=== PATIENT | male | born 1940 | race Caucasian/White ===

== ENCOUNTER 2021-10-04 17:00 | Outpatient (CLI) | payer MEDICARE, BC | END 2021-10-04 17:01 | disposition critical access hospital (66) | LOC: EMS 17:00 | DX: R47.02 Dysphasia (principal); R41.0 Disorientation, unspecified | CPT/HCPCS: A0425; A0427 ==

== ENCOUNTER 2021-10-04 17:30 | Inpatient (IN) | payer MEDICARE, BC ==
--- NOTE | 2021-10-04 17:54 | ED Physician Documentation ---
History of Present Illness - Stated complaint Stated Complaint: AMS - Chief complaint Chief Complaint: Neuro - History obtained from History obtained from: Family, EMS - History of Present Illness Pain level max: 0 Pain level now: 0 - Additonal information Additional information: Patient is an 81-year-old male who is brought in by EMS today for "altered mental status". It is unclear what his normal mental status is. Apparently he lives at home by himself and the crew was there to clean up the yard when they saw him inside the window on the floor. They called 911 who brought him here. Patient states that he remembers being on the floor but does not remember what happened before that. He states that he does not have any pain anywhere. Denies any vomiting or fevers. Nothing makes this better or worse. Patient denies any abdominal pain. When his daughter arrived, more history was obtained. He has had a slow cognitive decline over the past several years, but is normally able to care for himself. She speaks to him every few weeks. She states that his mental status today is worse than it has ever been. Appears disoriented to her. EMS also states that there was incontinence of urine at home. Review of Systems Unable to obtain: AMS Constitutional: denies: Fever Ears: denies: Ear pain Nose: denies: Rhinorrhea / runny nose, Congestion Throat: denies: Sore throat Respiratory: denies: Cough GI: denies: Abdominal Pain, Nausea, Vomiting, Diarrhea : denies: Dysuria Skin: denies: Rash Musculoskeletal: denies: Neck pain, Back pain Neurologic: denies: Headache, Head injury PD PAST MEDICAL HISTORY - Past Medical History Past Medical History: No - Past Surgical History Past Surgical History: No - Allergies Allergies/Adverse Reactions: Allergies Allergy/AdvReac Type Severity Reaction Status Date / Time No Known Drug Allergies Allergy Verified 10/04/21 21:23 - Living Situation Living Situation: reports: Alone Living Arrangement: reports: At home - Social History Does the pt have substance abuse?: No - Family History Family history: reports: Non contributory PD ED PE NORMAL - Vitals Vital signs reviewed: Yes - General General: No acute distress, Other (alert, oriented to person, place and time for me. 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, No motor deficit, No sensory deficit, Normal speech Eye Opening: Spontaneous Motor: Obeys Commands Verbal: Confused GCS Score: 14 - Psych Psych: Normal mood, Normal affect Results - Vitals Vitals: Vital Signs - 24 hr 10/04/21 10/04/21 17:36 20:31 Temperature 36.5 C Heart Rate 100 101 H Respiratory 18 23 Rate Blood Pressure 173/79 H 115/70 O2 Saturation 95 95 Oxygen O2 Source Room air - EKG (time done) 1757 Rate: Rate (enter#) (103) Rhythm: NSR [place]: Normal Intervals: Normal MT QRS: Normal Ischemia: Q waves, Non specific changes - Labs Labs: Laboratory Tests 10/04/21 10/04/21 10/04/21 17:56 17:56 17:56 WBC 11.0 H RBC 4.66 L Hgb 15.2 Hct 44.5 MCV 95.5 H MCH 32.6 H MCHC 34.2 RDW 12.1 Plt Count 176 MPV 9.9 Neut # (Auto) 8.9 H Lymph # (Auto) 0.6 L Cobb # (Auto) 1.3 H Eos # (Auto) 0.2 Baso # (Auto) 0.0 Absolute Nucleated RBC 0.00 Nucleated RBC % 0.0 Sodium 136 Potassium 4.2 Chloride 100 L Carbon Dioxide 23 Anion Gap 13.0 BUN 32 H Creatinine 1.0 Estimated GFR (MDRD) 72 L Glucose 127 H Calcium 8.8 Total Bilirubin 1.2 H AST 88 H ALT 34 Alkaline Phosphatase 79 Total Creatine Kinase Troponin I High Sens 44.2 H* Total Protein 7.1 Albumin 4.0 Globulin 3.1 Albumin/Globulin Ratio 1.3 Lipase 22 TSH Urine Color Urine Clarity Urine pH Ur Specific [place] Urine Protein Urine Glucose (UA) Urine Ketones Urine Occult Blood Urine Nitrite Urine Bilirubin Urine Urobilinogen Ur Leukocyte Esterase Urine RBC Urine WBC Ur Squamous Epith Cells Amorphous Sediment Urine Bacteria Ur Microscopic Review Urine Culture Comments Salicylates < 6.0 Urine Opiates Screen Ur Oxycodone Screen Urine Methadone Screen Ur Propoxyphene Screen Acetaminophen < 10 L Ur Barbiturates Screen Ur Tricyclics Screen Ur Phencyclidine Scrn Ur Amphetamine Screen U Methamphetamines Scrn U Benzodiazepines Scrn Urine Cocaine Screen U Cannabinoids Screen Ethyl Alcohol < 5.0 10/04/21 10/04/21 10/04/21 17:56 19:39 19:43 WBC RBC Hgb Hct MCV MCH MCHC RDW Plt Count MPV Neut # (Auto) Lymph # (Auto) Cobb # (Auto) Eos # (Auto) Baso # (Auto) Absolute Nucleated RBC Nucleated RBC % Sodium Potassium Chloride Carbon Dioxide Anion Gap BUN Creatinine Estimated GFR (MDRD) Glucose Calcium Total Bilirubin AST ALT Alkaline Phosphatase Total Creatine Kinase Troponin I High Sens 51.3 H* Total Protein Albumin Globulin Albumin/Globulin Ratio Lipase TSH 2.52 Urine Color YELLOW Urine Clarity CLEAR Urine pH 5.5 Ur Specific [place] >=1.030 H Urine Protein TRACE Urine Glucose (UA) NEGATIVE Urine Ketones 40 H Urine Occult Blood MODERATE H Urine Nitrite NEGATIVE Urine Bilirubin NEGATIVE Urine Urobilinogen 0.2 (NORMAL) Ur Leukocyte Esterase NEGATIVE Urine RBC 0-5 Urine WBC 0-3 Ur Squamous Epith Cells NONE SEEN Amorphous Sediment Rare Urine Bacteria None Seen Ur Microscopic Review INDICATED Urine Culture Comments NOT INDICATED Salicylates Urine Opiates Screen NEGATIVE Ur Oxycodone Screen NEGATIVE Urine Methadone Screen NEGATIVE Ur Propoxyphene Screen NEGATIVE Acetaminophen Ur Barbiturates Screen NEGATIVE Ur Tricyclics Screen NEGATIVE Ur Phencyclidine Scrn NEGATIVE Ur Amphetamine Screen NEGATIVE U Methamphetamines Scrn NEGATIVE U Benzodiazepines Scrn NEGATIVE Urine Cocaine Screen NEGATIVE U Cannabinoids Screen NEGATIVE Ethyl Alcohol 10/04/21 19:43 WBC RBC Hgb Hct MCV MCH MCHC RDW Plt Count MPV Neut # (Auto) Lymph # (Auto) Cobb # (Auto) Eos # (Auto) Baso # (Auto) Absolute Nucleated RBC Nucleated RBC % Sodium Potassium Chloride Carbon Dioxide Anion Gap BUN Creatinine Estimated GFR (MDRD) Glucose Calcium Total Bilirubin AST ALT Alkaline Phosphatase Total Creatine Kinase 2770 H* Troponin I High Sens Total Protein Albumin Globulin Albumin/Globulin Ratio Lipase TSH Urine Color Urine Clarity Urine pH Ur Specific [place] Urine Protein Urine Glucose (UA) Urine Ketones Urine Occult Blood Urine Nitrite Urine Bilirubin Urine Urobilinogen Ur Leukocyte Esterase Urine RBC Urine WBC Ur Squamous Epith Cells Amorphous Sediment Urine Bacteria Ur Microscopic Review Urine Culture Comments Salicylates Urine Opiates Screen Ur Oxycodone Screen Urine Methadone Screen Ur Propoxyphene Screen Acetaminophen Ur Barbiturates Screen Ur Tricyclics Screen Ur Phencyclidine Scrn Ur Amphetamine Screen U Methamphetamines Scrn U Benzodiazepines Scrn Urine Cocaine Screen U Cannabinoids Screen Ethyl Alcohol - Rads (name of study) head CT Radiology: Final report received, EMP read contemporaneously, See rad report (No acute intracranial abnormality. ) cervical spine CT Radiology: Final report received, EMP read contemporaneously, See rad report (No acute osseous abnormality. ) PD MEDICAL DECISION MAKING - ED course Complexity details: reviewed results, re-evaluated patient, considered differential, d/w patient, d/w family ED course: Patient with continued altered mental status. Unclear what happened today. Possible seizure versus syncope. The patient states that he told his daughter the last thing he remembers is turning on the radio. There was urinary incontinence as well. Possible that he also has undiagnosed dementia. The daughter states he shuffles with his gait. Possible Parkinson's? We will place in observation for further work-up of possible syncope versus seizure. Discussed the case with Dr. Luis, hospitalist who accepts This document was made in part using voice recognition software. While efforts are made to proofread this document, sound alike and grammatical errors may occur. Departure - Departure Disposition: ED Place in Observation Clinical Impression: Syncope Qualifiers: Syncope type: unspecified Qualified Code(s): R55 - Syncope and collapse Altered mental status Qualifiers: Altered mental status type: disorientation Qualified Code(s): R41.0 - Disorientation, unspecified Condition: Stable Discharge Date/Time: 10/04/21 21:49
[2021-10-04 18:03] LABS: BASOPHILS % (AUTO) 0.1 %; EOSINOPHILS # (AUTO) 0.2 10^3/uL (0.0-0.7); EOSINOPHILS % (AUTO) 1.7 %; HCT - HEMATOCRIT 44.5 % (42.0-52.0); HGB - HEMOGLOBIN 15.2 g/dL (14.0-18.0); LYMPHOCYTES # (AUTO) 0.6 10^3/uL (1.5-3.5); LYMPHOCYTES % (AUTO) 5.5 %; MEAN CORPUSCULAR HEMOGLOBIN 32.6 pg (27.0-31.0); MEAN CORPUSCULAR HGB CONC 34.2 g/dL (32.0-36.0); MEAN CORPUSCULAR VOLUME 95.5 fL (80.0-94.0); MEAN PLATELET VOLUME 9.9 fL (7.4-11.4); MONOCYTES # (AUTO) 1.3 10^3/uL (0.0-1.0); MONOCYTES % (AUTO) 11.8 %; NEUTROPHILS # (AUTO) 8.9 10^3/uL (1.5-6.6); NEUTROPHILS % (AUTO) 80.7 %; PLT - PLATELET COUNT 176 10^3/uL (130-450); RED BLOOD COUNT 4.66 10^6/uL (4.70-6.10); RED CELL DISTRIBUTION WIDTH 12.1 % (12.0-15.0)
[2021-10-04 18:20] LABS: ACETAMINOPHEN < 10 ug/mL (10-30); ALBUMIN/GLOBULIN RATIO 1.3 (1.0-2.2); ALKALINE PHOSPHATASE 79 IU/L (42-121); ALT ALANINE AMINOTRANSFERASE 34 IU/L (10-60); AST ASPARTATE AMINOTRANSFERASE 88 IU/L (10-42); BILIRUBIN,TOTAL 1.2 mg/dL (0.2-1.0); BUN - BLOOD UREA NITROGEN 32 mg/dL (6-20); CALCIUM 8.8 mg/dL (8.5-10.3); CARBON DIOXIDE - CO2 23 mmol/L (21-32); CHLORIDE 100 mmol/L (101-111); ETOH - ETHANOL < 5.0 mg/dL; GFR - MDRD 72 (>89); GLUCOSE 127 mg/dL (70-100); LIPASE 22 U/L (22-51); POTASSIUM 4.2 mmol/L (3.5-5.0); SALICYLATE < 6.0 mg/dL; SODIUM 136 mmol/L (135-145); TOTAL PROTEIN 7.1 g/dL (6.7-8.2)
--- NOTE | 2021-10-04 18:33 | CT Report ---
PROCEDURE: HEAD WO INDICATIONS: altered, fall TECHNIQUE: Noncontrast 4.5 mm thick angled axial sections acquired from the foramen magnum to the vertex. For r adiation dose reduction, the following was used: automated exposure control, adjustment of mA and/or kV according to patient size. COMPARISON: Same day CT cervical spine. FINDINGS: Image quality: Excellent. CSF spaces: Basal cisterns are patent. No extra-axial fluid collections. Ventricles are normal in size and shape. Brain: No midline shift. No intracranial masses or hemorrhage. No large area of hypodensity in a va scular distribution to suggest infarction. Skull and face: Calvarium and visualized facial bones are intact, without suspicious lesions. Sinuses: Visualized sinuses and mastoids are clear. IMPRESSION: No acute intracranial abnormality. Reviewed by: Marvel Calixto MD on 10/04/2021 6:32 PM [facility] Approved by: Marvel Calixto MD on 10/04/2021 6:32 PM [facility] Station ID: [id number]
--- NOTE | 2021-10-04 18:36 | CT Report ---
PROCEDURE: CERVICAL SPINE WO INDICATIONS: altered, fall TECHNIQUE: Noncontrast 3 mm thick sections acquired from the skull base to the T4 level. Sagittal and coronal r eformats were then constructed. For radiation dose reduction, the following was used: automated exp osure control, adjustment of mA and/or kV according to patient size. COMPARISON: None. FINDINGS: Image quality: Excellent. Bones: No fractures or dislocations. Moderate degenerative change in the cervical spine. Visualized superior ribs are intact. Soft tissues: Prevertebral soft tissues are normal in thickness. No paravertebral hematomas. No ap ical pneumothoraces. IMPRESSION: No acute osseous abnormality. Reviewed by: Marvel Calixto MD on 10/04/2021 6:35 PM PST Approved by: Marvel Calixto MD on 10/04/2021 6:35 PM PST Station ID: [id number]
[2021-10-04 19:42] LABS: MUDS CUTOFF CONCENTRATIONS CUTOFF CONC BELOW:
[2021-10-04 19:46] LABS: BILIRUBIN,URINE NEGATIVE (NEGATIVE); GLUCOSE, URINE (UA) NEGATIVE (NEGATIVE); KETONES,URINE (UA) 40 mg/dL (NEGATIVE); LEUKOCYTE ESTERASE, URINE NEGATIVE (NEGATIVE); NITRITE,URINE NEGATIVE (NEGATIVE); OCCULT BLOOD,URINE MODERATE (NEGATIVE); PH,URINE 5.5 PH (5.0-7.5); PROTEIN,URINE TRACE mg/dL (NEGATIVE); UROBILINOGEN,URINE 0.2 (NORMAL) E.U./dL (NORMAL)
[2021-10-04 19:48] LABS: CLARITY,URINE CLEAR (CLEAR)
[2021-10-04 19:55] LABS: AMORPHOUS SEDIMENT,UR Rare /LPF; BACTERIA,URINE None Seen /HPF (None Seen); RBC,URINE 0-5 /HPF (0-5); SQUAMOUS EPITHELIAL CELL,UR NONE SEEN (<= Few); WBC,URINE 0-3 /HPF (0-3)
[2021-10-04 19:56] LABS: AMPHETAMINE SCREEN,URINE NEGATIVE (NEGATIVE); BARBITURATE SCREEN,UR NEGATIVE (NEGATIVE); BENZODIAZEPINES SCREEN, URINE NEGATIVE (NEGATIVE); COCAINE SCREEN URINE NEGATIVE (NEGATIVE); METHADONE SCREEN, URINE NEGATIVE (NEGATIVE); METHAMPHETAMINES SCREEN, URINE NEGATIVE (NEGATIVE); OPIATE SCREEN, URINE NEGATIVE (NEGATIVE); OXYCODONE SCREEN, URINE NEGATIVE (NEGATIVE); PROPOXYPHENE SCREEN, URINE NEGATIVE (NEGATIVE); THC CANNABINOID SCREEN, URINE NEGATIVE (NEGATIVE); TRICYCLIC ANTIDEPRESSANT,URINE NEGATIVE (NEGATIVE)
[2021-10-04] MEDS ORDERED: ONDANSETRON 4 MG/2 ML VIAL IVP PRN (20:52)
[2021-10-04] MEDS ORDERED: SODIUM CHLORIDE FLUSH 0.9% 10 ML SYRINGE IVP PRN (20:52)
--- NOTE | 2021-10-04 21:02 | HISTORY & PHYSICAL EXAMINATION ---
Chief Complaint - Chief Complaint Chief Complaint: Found down History of Present Illness - Admitted From Admitted From:: ED - History Obtained From History obtained from: ED provider and the daughter at his bedside - History of Present Illness HPI Comment/Other: This is an 81-year-old white male who lives alone, daughter lives in [place] (and arrived at his bedside in ED). 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 He has no significant past medical history, sees his doctor for routine visits, and takes no chronic prescription medications. Today his pinball machine repairer's were working at his location and through his home's window, they saw him on the floor in his house and called 911. EMS arrived and found him to be warm and dry but confused and incontinent of urine. Vital signs at the scene showed O2 saturation of 96%, blood pressure of 180/100, serum glucose of 140, heart rate 90-110 but no EKG was done then. In the ED he was oriented only to person and time, not to place; he thought he was in [place]. His neuro exam was non-focal. He stated he remembered being on the floor but could not remember how he got there or how long he was down. The daughter arrived at bedside in the ED, and did report that he is becoming slowly more confused over the last few mos and she thinks he no longer drives. He underwent a head CT and neck imaging which showed no acute findings and no trauma. The patient is currently on Amoxicillin for dental infection and no abscess was seen on imaging. His EKG is abnormal suggesting possible old posterior SD. His initial blood pressure here was 180 systolic and on repeat was as low as 115 systolic. Labs show prerenal azotemia and concentrated urine consistent with dehydration, his tox screen is entirely neg. The patient was presented to the Hospitalist team to place in Observation status to evaluate syncope versus seizure and also evaluate his persistent confusion (altered mental status). I discussed his CODE [place] wishes with his daughter and she does not know, and he is too lethargic to answer me. History - Past Medical History Cardiovascular: reports: None Respiratory: reports: None Neuro: reports: Other (Daughter repoirts lapses in memory, mixes up recent with past events.) Endocrine/Autoimmune: reports: None GI: reports: None WASHER ENGINEER: reports: None : reports: None HEENT: reports: Other (Current dental infection, is on Amoxacillin) Psych: reports: None Musculoskeletal: reports: None Derm: reports: None - Family & Social History Family History: Mother: , Father: , Other family: Alive and Well (2 daughters are alive and healthy) Family History Comment/Other: He was an only child. 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 His of 40 years him and he lives alone since 2008. Living arrangement: At home Living Situation: Alone Social History Notes: He quit smoking 50+ yrs ago, and does not drink alcohol for the past 9 years ("to be healthier"). [place]. - Substance History Use: Uses substance without health or social issues: NONE Meds/Allgy - Allergies Allergies/Adverse Reactions: Allergies Allergy/AdvReac Type Severity Reaction Status Date / Time No Known Drug Allergies Allergy Verified 10/04/21 21:23 Review of Systems - Ears, Nose & Throat Ears, Nose & Throat: reports: Other (Dental surgery scheduled in 1 week, currently he has a prescription for Amoxacillin,) - Neurological Neurological: reports: Memory problems, Other (He stays up late and sleeps-in late. He is currently sleeping and awakens to name but falls asleep immediately, occaisionally snoring, sleeping on his back.) - All Other Systems All Other Systems: reports: Reviewed and negative (These were all reviewed with the daughter at his bedside.) Exam - Vital Signs Reviewed Vital Signs: Yes Vital Signs: Vital Signs x48h Temp Pulse Resp BP Pulse Ox 10/04/21 20:31 101 H 23 115/70 95 10/04/21 17:36 36.5 C 100 18 173/79 H 95 - Physical Exam General Appearance: positive: No acute distress, Lethargic (He is currently sleeping and awakens to name but falls asleep immediately, occaisionally snoring, sleeping on his back.) Eyes Bilateral: positive: Normal inspection ENT: positive: Dry mucous membranes Neck: positive: Nml inspection, No JVD Respiratory: positive: No respiratory distress, Breath sounds nml Cardiovascular: positive: Regular rate & rhythm, No murmur Abdomen: positive: Non-tender, Nml bowel sounds, No distention Skin: positive: Warm, Dry Extremities: positive: Non-tender, Other (Trace ankle edema) Neurologic/Psychiatric: positive: Other (Lethargic, moving all extrem spontaneously, awakens to name and answers with one word but falls back asleep.) Conclusion/Plan - Problem List (1) Syncope Conclusion/Plan: How he got to the ground was unwitnessed and he cannot remember. Will evaluate as it for syncope versus seizures. Will place on telemetry, obtain orthostatic vital sign checks, obtain an echo. We will order neuro checks every 4 hours and obtain a brain MRI in the morning. Will obtain a serum CK level to evaluate for possible rhabdomyolysis>> The result returned at 2770 (upper limit of normal is 4 times hour highest limit which would be 1345, therefore he has mild rhabdomyolysis) Qualifiers: Syncope type: unspecified Qualified Code(s): R55 - Syncope and collapse (2) Altered mental status Conclusion/Plan: The patient was not oriented to place at presentation to the ED. In his house at the scene, he was reported to be confused with no details regarding the degree of confusion. The daughter reported that his memory is slowly becoming worse. This altered mental status could be a post ictal state if he had a seizure causing the fall to ground, or this AMS could be his decline in memory, that is reported by the daughter. Will order neuro checks every 4 hours. We will obtain a brain MRI for more detailed brain imaging. Will give IV hydration to treat the prerenal azotemia. Will order evaluation by Occupational Therapy including a mini cognitive evaluation. Based on this result, living alone or driving may need to be restricted. Qualifiers: Altered mental status type: disorientation Qualified Code(s): R41.0 - Disorientation, unspecified (3) Prerenal azotemia Conclusion/Plan: His BUN/creatinine ratio is elevated and his urine specific gravity is greater than 1.030 suggesting volume depletion. Perhaps dehydration causing orthostasis was the cause for his fall. Will start normal saline at a moderate rate for rehydration. Avoid nephrotoxins. Follow BMP daily. (4) Abnormal EKG Conclusion/Plan: His EKG is significant for early R/S transition which could be cor pulmonale or an old posterior infarct. His two troponins (44 and 51) have ruled him out for an acute coronary event. Telemetry ordered. A complete Echo has been ordered as part of the syncope work-up. (5) Rhabdomyolysis Conclusion/Plan: A serum CK level was ordered to evaluate for possible rhabdomyolysis. The result returned at 2770 (upper limit of normal is 4 times hour highest limit which would be 1345, therefore he has mild rhabdomyolysis). Continue with the IV saline hydration which is planned. Follow CK daily - Lab Results Fish Bones: 10/04/21 17:56 10/04/21 17:56
[2021-10-04] MEDS: SODIUM CHLORIDE 0.9% 1,000 ML IV SCH (21:15)
[2021-10-04 22:31] LABS: B. PARAPERTUSSIS- RESP PCR PAN NOT DETECTED; B. PERTUSSIS- RESP PCR PANEL NOT DETECTED; C. PNEUMONIAE- RESP PCR PANEL NOT DETECTED; CORONAVIRUS 229E-RESP PCR NOT DETECTED; CORONAVIRUS HKU1-RESP PCR NOT DETECTED; CORONAVIRUS NL63-RESP PCR NOT DETECTED; CORONAVIRUS OC43-RESP PCR NOT DETECTED; HUMAN METAPNEUMOVIRUS NOT DETECTED; INFLUENZA A- RESP PCR PANEL NOT DETECTED; INFLUENZA B - RESP PCR PANEL NOT DETECTED; M. PNEUMONIAE- RESP PCR PANEL NOT DETECTED; PARAINFLUENZA VIRUS 1 NOT DETECTED; PARAINFLUENZA VIRUS 2 NOT DETECTED; PARAINFLUENZA VIRUS 3 NOT DETECTED; PARAINFLUENZA VIRUS 4 NOT DETECTED; RHINOVIRUS/ENTEROVIRUS NOT DETECTED; RSV- RESP PCR PANEL NOT DETECTED; SARS-CoV-2 -RESP PCR PANEL NOT DETECTED
[2021-10-05] MEDS: SODIUM CHLORIDE FLUSH 0.9% 10 ML SYRINGE IVP SCH ×4 (00:03→23:36)
[2021-10-05] MEDS: SODIUM CHLORIDE 0.9% 1,000 ML IV SCH ×3 (06:43→16:13)
[2021-10-05 07:20] LABS: CALCIUM 8.3 mg/dL (8.5-10.3); CREATININE 1.1 mg/dL (0.6-1.2); POTASSIUM 3.7 mmol/L (3.5-5.0)
[2021-10-05 08:41] LABS: BASOPHILS % (AUTO) 0.4 %; EOSINOPHILS % (AUTO) 0.4 %; HGB - HEMOGLOBIN 12.9 g/dL (14.0-18.0); LYMPHOCYTES # (AUTO) 1.4 10^3/uL (1.5-3.5); LYMPHOCYTES % (AUTO) 16.4 %; MEAN CORPUSCULAR HEMOGLOBIN 33.1 pg (27.0-31.0); MEAN CORPUSCULAR HGB CONC 33.9 g/dL (32.0-36.0); MEAN CORPUSCULAR VOLUME 97.4 fL (80.0-94.0); MEAN PLATELET VOLUME 10.2 fL (7.4-11.4); MONOCYTES # (AUTO) 1.1 10^3/uL (0.0-1.0); MONOCYTES % (AUTO) 13.3 %; NEUTROPHILS # (AUTO) 5.7 10^3/uL (1.5-6.6); NEUTROPHILS % (AUTO) 69.1 %; PLT - PLATELET COUNT 147 10^3/uL (130-450); RED CELL DISTRIBUTION WIDTH 12.8 % (12.0-15.0); WHITE BLOOD COUNT 8.2 x10^3/uL (4.8-10.8)
--- NOTE | 2021-10-05 13:46 | MRI Report ---
PROCEDURE: Brain W/O INDICATIONS: Altered mental status TECHNIQUE: Noncontrast axial T1 spin echo, axial T2 fast spin echo, sagittal and axial FLAIR, coronal T2 fast sp in echo, axial gradient echo, axial diffusion and ADC through the brain. COMPARISON: CT head 10/04/2021 FINDINGS: Image quality: Excellent. The ventricular system and cortical sulci demonstrate atrophy, consistent for patient's stated age. There are areas of hyperintense T2/FLAIR signal in the periventricular and subcortical white matter. There is no acute intra or extra-axial fluid collection. No acute hemorrhage, mass lesion or midlin e shift. Brainstem is unremarkable. There are no areas of restricted diffusion. Globes are symmetr ical. Sinuses are aerated. Osseous structures are intact. IMPRESSION: 1. No acute intracranial process. 2. Moderate atrophy and chronic microvascular ischemic changes. Reviewed by: Aster Lockwood MD on 10/05/2021 1:45 PM PST Approved by: Aster Lockwood MD on 10/05/2021 1:45 PM PST Station ID: [id number]
[2021-10-05 15:31] LABS: CALCIUM 8.1 mg/dL (8.5-10.3); CREATININE 1.2 mg/dL (0.6-1.2); POTASSIUM 3.7 mmol/L (3.5-5.0)
--- NOTE | 2021-10-05 15:34 | PROVIDER PROGRESS NOTE ---
Assessment/Plan - Problem List (1) Altered mental status Qualifiers: Altered mental status type: disorientation Qualified Code(s): R41.0 - Disorientation, unspecified Assessment/Plan: 10/05 pt still present confusion, he report he is "on surgery". his creatinine is 1.2 today from 1 at the admission, CK remain the similar as the admission. pt did not have seizure at hospital as far. MRI of brain reveal No acute process. continue neuro check, continue OT/PT evaluation and treatment. consult with social worker assistant for d/c planning. (2) Syncope Conclusion/Plan: pt has unwitnessed syncope, ECHO has normal EF, without aortic stenosis, unremarkable, troponin is slight elevated but flat, r/o acute CAD. he denies chest pain. he is negative for orthostatic hypotension. pt presented dehydration, confusion, mild rhabdomyolysis (3) Prerenal azotemia pt had no IVF at ER. now he has slight elevated creatinine, increase IVF to 125 cc/h, lab and vital monitor (4) Rhabdomyolysis mild rhabdomyolysis, CK remain similar today. pt had no IVF at ER, order IVF, check CK daily - Current Meds Current Meds: Current Medications Generic Name Dose Route Start Last Admin Trade Name Gorgeq PRN Reason Stop Dose Admin Sodium Chloride 1,000 mls @ 125 mls/hr 10/05/21 08:02 10/05/21 12:44 Normal Saline 0.9% IV 10/06/21 00:00 125 mls/hr .Q8H TRA Infusion Sodium Chloride 10 ml 10/05/21 01:00 10/05/21 11:11 Sodium Chloride Flush 0.9% 10 Ml Syringe IVP Not Given 0100,0900,1700 TRA - Lab Result Fish Bone Diagrams: 10/05/21 08:20 10/05/21 15:13 - Additional Planning My Orders: My Active Orders 10/05/21 Social Work Consult [CONS] Routine 10/05/21 08:02 Sodium Chloride 0.9% [Normal Saline 0.9%] 1,000 ml IV 125 mls/hr 10/05/21 15:13 CK- CREATINE KINASE [CHEM] Timed 10/06/21 05:00 BMP - BASIC METABOLIC PANEL [CHEM] DAILYLAB CBC - COMP BLD CT W/AUTO DIFF [HEME] DAILYLAB CK- CREATINE KINASE [CHEM] DAILYLAB 10/07/21 05:00 BMP - BASIC METABOLIC PANEL [CHEM] DAILYLAB CBC - COMP BLD CT W/AUTO DIFF [HEME] DAILYLAB CK- CREATINE KINASE [CHEM] DAILYLAB 10/08/21 05:00 BMP - BASIC METABOLIC PANEL [CHEM] DAILYLAB CBC - COMP BLD CT W/AUTO DIFF [HEME] DAILYLAB CK- CREATINE KINASE [CHEM] DAILYLAB 10/09/21 05:00 BMP - BASIC METABOLIC PANEL [CHEM] DAILYLAB CBC - COMP BLD CT W/AUTO DIFF [HEME] DAILYLAB CK- CREATINE KINASE [CHEM] DAILYLAB 10/10/21 05:00 BMP - BASIC METABOLIC PANEL [CHEM] DAILYLAB CBC - COMP BLD CT W/AUTO DIFF [HEME] DAILYLAB CK- CREATINE KINASE [CHEM] DAILYLAB Subjective - Subjective Patient Reports: Resting Comfortably Objective Vital Signs: Vital Signs - 24 hr 10/04/21 10/04/21 10/04/21 17:36 20:31 21:36 Temperature 36.5 C 36.8 C Heart Rate 100 101 H Heart Rate [ Activity] Heart Rate [ 95 Brachial] Heart Rate [ Monitoring electrodes] Heart Rate [ Sitting] Heart Rate [ Standing] Heart Rate [ Supine] Respiratory 18 23 18 Rate Blood Pressure 173/79 H 115/70 Blood Pressure [Activity] Blood Pressure 124/74 [Left] Blood Pressure [Right Brachial artery] Blood Pressure [Sitting] Blood Pressure [Standing] Blood Pressure [Supine] O2 Saturation 95 95 99 10/04/21 10/05/21 10/05/21 23:43 05:00 08:15 Temperature 36.8 C 37.1 C 37.7 C Heart Rate Heart Rate [ Activity] Heart Rate [ 97 86 Brachial] Heart Rate [ 96 Monitoring electrodes] Heart Rate [ Sitting] Heart Rate [ Standing] Heart Rate [ Supine] Respiratory 20 18 20 Rate Blood Pressure Blood Pressure [Activity] Blood Pressure 127/61 [Left] Blood Pressure 131/64 H 124/55 L [Right Brachial artery] Blood Pressure [Sitting] Blood Pressure [Standing] Blood Pressure [Supine] O2 Saturation 95 95 93 10/05/21 10/05/21 11:59 13:10 Temperature 37.3 C Heart Rate Heart Rate [ 86 Activity] Heart Rate [ 85 Brachial] Heart Rate [ Monitoring electrodes] Heart Rate [ 86 Sitting] Heart Rate [ 93 Standing] Heart Rate [ 84 Supine] Respiratory 20 Rate Blood Pressure Blood Pressure 135/72 H [Activity] Blood Pressure [Left] Blood Pressure 130/59 L [Right Brachial artery] Blood Pressure 144/81 H [Sitting] Blood Pressure 133/74 H [Standing] Blood Pressure 132/67 H [Supine] O2 Saturation 94 Oxygen O2 Source Room air I&O (Last 24 Hrs): Intake and Output Totals x24h 10/03/21 10/04/21 10/05/21 23:59 23:59 23:59 Intake Total 2320.000 Output Total 300 Balance -300 2320.000 General: Alert, Cooperative, No acute distress HEENT: Atraumatic, PERRLA Neck: Supple Lymphatic: no adenopathy Neuro: Alert, Non Focal Cardiovascular: Regular rate, Normal S1, Normal S2 Respiratory: Chest non-tender, No respiratory distress, Breath sounds nml Abdomen: Normal bowel sounds, Soft Extremities: Normal pulses - Results Results: Laboratory Results WBC 8.2 x10^3/uL (4.8-10.8) 10/05/21 08:20 RBC 3.90 10^6/uL (4.70-6.10) L 10/05/21 08:20 Hgb 12.9 g/dL (14.0-18.0) L 10/05/21 08:20 Hct 38.0 % (42.0-52.0) L 10/05/21 08:20 MCV 97.4 fL (80.0-94.0) H 10/05/21 08:20 MCH 33.1 pg (27.0-31.0) H 10/05/21 08:20 MCHC 33.9 g/dL (32.0-36.0) 10/05/21 08:20 RDW 12.8 % (12.0-15.0) 10/05/21 08:20 Plt Count 147 10^3/uL (130-450) 10/05/21 08:20 MPV 10.2 fL (7.4-11.4) 10/05/21 08:20 Neut # (Auto) 5.7 10^3/uL (1.5-6.6) 10/05/21 08:20 Lymph # (Auto) 1.4 10^3/uL (1.5-3.5) L 10/05/21 08:20 [place] # (Auto) 1.1 10^3/uL (0.0-1.0) H 10/05/21 08:20 Eos # (Auto) 0.0 10^3/uL (0.0-0.7) 10/05/21 08:20 Baso # (Auto) 0.0 10^3/uL (0.0-0.1) 10/05/21 08:20 Absolute Nucleated RBC 0.00 x10^3/uL 10/05/21 08:20 Nucleated RBC % 0.0 /100WBC 10/05/21 08:20 Sodium 137 mmol/L (135-145) 10/05/21 15:13 Potassium 3.7 mmol/L (3.5-5.0) 10/05/21 15:13 Chloride 110 mmol/L (101-111) 10/05/21 15:13 Carbon Dioxide 22 mmol/L (21-32) 10/05/21 15:13 Anion Gap 5.0 (6-13) L 10/05/21 15:13 BUN 32 mg/dL (6-20) H 10/05/21 15:13 Creatinine 1.2 mg/dL (0.6-1.2) 10/05/21 15:13 Estimated GFR (MDRD) 58 (>89) L 10/05/21 15:13 Glucose 127 mg/dL (70-100) H 10/05/21 15:13 Calcium 8.1 mg/dL (8.5-10.3) L 10/05/21 15:13 Total Bilirubin 1.2 mg/dL (0.2-1.0) H 10/04/21 17:56 AST 88 IU/L (10-42) H 10/04/21 17:56 ALT 34 IU/L (10-60) 10/04/21 17:56 Alkaline Phosphatase 79 IU/L (42-121) 10/04/21 17:56 Total Creatine Kinase 2735 IU/L (22-269) H* 10/05/21 04:58 Troponin I High Sens 51.3 ng/L (2.3-19.7) H* 10/04/21 19:43 Total Protein 7.1 g/dL (6.7-8.2) 10/04/21 17:56 Albumin 4.0 g/dL (3.2-5.5) 10/04/21 17:56 Globulin 3.1 g/dL (2.1-4.2) 10/04/21 17:56 Albumin/Globulin Ratio 1.3 (1.0-2.2) 10/04/21 17:56 Lipase 22 U/L (22-51) 10/04/21 17:56 TSH 2.52 uIU/mL (0.34-5.60) 10/04/21 17:56 Urine Color YELLOW 10/04/21 19:39 Urine Clarity CLEAR (CLEAR) 10/04/21 19:39 Urine pH 5.5 PH (5.0-7.5) 10/04/21 19:39 Ur Specific [place] >=1.030 (1.002-1.030) H 10/04/21 19:39 Urine Protein TRACE mg/dL (NEGATIVE) 10/04/21 19:39 Urine Glucose (UA) NEGATIVE mg/dL (NEGATIVE) 10/04/21 19:39 Urine Ketones 40 mg/dL (NEGATIVE) H 10/04/21 19:39 Urine Occult Blood MODERATE (NEGATIVE) H 10/04/21 19:39 Urine Nitrite NEGATIVE (NEGATIVE) 10/04/21 19:39 Urine Bilirubin NEGATIVE (NEGATIVE) 10/04/21 19:39 Urine Urobilinogen 0.2 (NORMAL) E.U./dL (NORMAL) 10/04/21 19:39 Ur Leukocyte Esterase NEGATIVE (NEGATIVE) 10/04/21 19:39 Urine RBC 0-5 /HPF (0-5) 10/04/21 19:39 Urine WBC 0-3 /HPF (0-3) 10/04/21 19:39 Ur Squamous Epith Cells NONE SEEN (<= Few) 10/04/21 19:39 Amorphous Sediment Rare /LPF 10/04/21 19:39 Urine Bacteria None Seen /HPF (None Seen) 10/04/21 19:39 Ur Microscopic Review INDICATED 10/04/21 19:39 Urine Culture Comments NOT INDICATED 10/04/21 19:39 Nasal Adenovirus (PCR) NOT DETECTED 10/04/21 21:03 Nasal B. parapertussis DNA (PCR) NOT DETECTED 10/04/21 21:03 Nasal Coronavir 229E PCR NOT DETECTED 10/04/21 21:03 Nasal Coronavir HKU1 PCR NOT DETECTED 10/04/21 21:03 Nasal Coronavir NL63 PCR NOT DETECTED 10/04/21 21:03 Nasal Coronavir OC43 PCR NOT DETECTED 10/04/21 21:03 Nasal Enterovir/Rhinovir PCR NOT DETECTED 10/04/21 21:03 Nasal Influenza B PCR NOT DETECTED 10/04/21 21:03 Nasal Influenza A PCR NOT DETECTED 10/04/21 21:03 Nasal Parainfluen 1 PCR NOT DETECTED 10/04/21 21:03 Nasal Parainfluen 2 PCR NOT DETECTED 10/04/21 21:03 Nasal Parainfluen 3 PCR NOT DETECTED 10/04/21 21:03 Nasal Parainfluen 4 PCR NOT DETECTED 10/04/21 21:03 Nasal RSV (PCR) NOT DETECTED 10/04/21 21:03 Nasal B.pertussis DNA PCR NOT DETECTED 10/04/21 21:03 Nasal C.pneumoniae (PCR) NOT DETECTED 10/04/21 21:03 Deonte Human Metapneumo PCR NOT DETECTED 10/04/21 21:03 Nasal M.pneumoniae (PCR) NOT DETECTED 10/04/21 21:03 Nasal SARS-CoV-2 (PCR) NOT DETECTED 10/04/21 21:03 Salicylates < 6.0 mg/dL 10/04/21 17:56 Urine Opiates Screen NEGATIVE (NEGATIVE) 10/04/21 19:39 Ur Oxycodone Screen NEGATIVE (NEGATIVE) 10/04/21 19:39 Urine Methadone Screen NEGATIVE (NEGATIVE) 10/04/21 19:39 Ur Propoxyphene Screen NEGATIVE (NEGATIVE) 10/04/21 19:39 Acetaminophen < 10 ug/mL (10-30) L 10/04/21 17:56 Ur Barbiturates Screen NEGATIVE (NEGATIVE) 10/04/21 19:39 Ur Tricyclics Screen NEGATIVE (NEGATIVE) 10/04/21 19:39 Ur Phencyclidine Scrn NEGATIVE (NEGATIVE) 10/04/21 19:39 Ur Amphetamine Screen NEGATIVE (NEGATIVE) 10/04/21 19:39 U Methamphetamines Scrn NEGATIVE (NEGATIVE) 10/04/21 19:39 U Benzodiazepines Scrn NEGATIVE (NEGATIVE) 10/04/21 19:39 Urine Cocaine Screen NEGATIVE (NEGATIVE) 10/04/21 19:39 U Cannabinoids Screen NEGATIVE (NEGATIVE) 10/04/21 19:39 Ethyl Alcohol < 5.0 mg/dL 10/04/21 17:56 ABX Reporting Has patient been on IV antibiotics over the past 48 hours?: No Current Medications - Current Medications Current Medications: Active Medications Acetaminophen (Acetaminophen 325 Mg Tablet) 650 mg PO Q4HR PRN PRN Reason: Pain or Fever > 38C (100.4F) Sodium Chloride (Normal Saline 0.9%) 1,000 mls @ 125 mls/hr IV .Q8H [facility] Stop: 10/06/21 00:00 Last Infusion: 10/05/21 12:44 Dose: 125 mls/hr Documented by: Ondansetron HCl (Ondansetron 4 Mg/2 Ml Vial) 4 mg IVP Q6HR PRN PRN Reason: Nausea / Vomiting Sodium Chloride (Sodium Chloride Flush 0.9% 10 Ml Syringe) 10 ml IVP PRN PRN PRN Reason: NEEDED PER PROVIDER ORDERS Sodium Chloride (Sodium Chloride Flush 0.9% 10 Ml Syringe) 10 ml IVP 0100,0900,1700 [facility] Last Admin: 10/05/21 11:11 Dose: Not Given Documented by:
[2021-10-06 06:05] LABS: BASOPHILS % (AUTO) 0.4 %; EOSINOPHILS # (AUTO) 0.1 10^3/uL (0.0-0.7); HCT - HEMATOCRIT 41.2 % (42.0-52.0); HGB - HEMOGLOBIN 13.7 g/dL (14.0-18.0); LYMPHOCYTES # (AUTO) 1.4 10^3/uL (1.5-3.5); LYMPHOCYTES % (AUTO) 12.7 %; MEAN CORPUSCULAR HEMOGLOBIN 32.5 pg (27.0-31.0); MEAN CORPUSCULAR HGB CONC 33.3 g/dL (32.0-36.0); MEAN CORPUSCULAR VOLUME 97.9 fL (80.0-94.0); MEAN PLATELET VOLUME 10.4 fL (7.4-11.4); MONOCYTES # (AUTO) 1.2 10^3/uL (0.0-1.0); MONOCYTES % (AUTO) 11.4 %; NEUTROPHILS # (AUTO) 7.9 10^3/uL (1.5-6.6); NEUTROPHILS % (AUTO) 74.2 %; PLT - PLATELET COUNT 149 10^3/uL (130-450); RED BLOOD COUNT 4.21 10^6/uL (4.70-6.10); RED CELL DISTRIBUTION WIDTH 12.8 % (12.0-15.0); WHITE BLOOD COUNT 10.7 x10^3/uL (4.8-10.8)
[2021-10-06 06:26] LABS: CHOL/HDL RATIO 3.2 (<5.0); CHOLESTEROL 161 mg/dL; HDL CHOLESTEROL 51 mg/dL; LDL CHOLESTEROL,CALCULATED 94 mg/dL; LDL/HDL RATIO 1.8 (<3.6); TRIGLYCERIDES 80 mg/dL; VLDL CHOLESTEROL 16 mg/dL
[2021-10-06 06:31] LABS: CALCIUM 8.4 mg/dL (8.5-10.3); CREATININE 1.1 mg/dL (0.6-1.2); POTASSIUM 3.7 mmol/L (3.5-5.0)
[2021-10-06] MEDS ORDERED: SODIUM CHLORIDE 0.9% 1,000 ML IV SCH (08:00)
[2021-10-06] MEDS: ASPIRIN EC 81 MG TABLET PO SCH (08:13)
[2021-10-06] MEDS: polyethylene glycoL 3350 17 GM PACKET PO SCH (08:15)
[2021-10-06] MEDS: SODIUM CHLORIDE FLUSH 0.9% 10 ML SYRINGE IVP SCH ×3 (08:16→16:52)
--- NOTE | 2021-10-06 08:46 | XRAY Report ---
PROCEDURE: Chest 1 View X-Ray INDICATIONS: sob TECHNIQUE: One view of the chest was acquired. COMPARISON: Lung apices on CT cervical spine 10/04/2021. FINDINGS: Surgical changes and devices: None. Lungs and pleura: No pleural effusions or pneumothorax. Question minimal airspace opacity at the lila g bases. Mediastinum: Mediastinal contours are within normal limits. Heart size is normal. Bones and chest wall: No suspicious bony lesions. Right shoulder DJD. Overlying soft tissues appear unremarkable. IMPRESSION: Question of minimal airspace opacity at the lung bases. This could represent atelectasis or pneumonia . Reviewed by: Marvel Calixto MD on 10/06/2021 8:45 AM [facility] Approved by: Marvel Calixto MD on 10/06/2021 8:45 AM [facility] Station ID: [id number]
[2021-10-06] MEDS: SODIUM CHLORIDE 0.9% 1,000 ML IV SCH ×2 (09:50→22:38)
[2021-10-06] MEDS: AMPICILLIN/SULBACTAM 1.5 GM in SODIUM CHLORIDE 0.9% MINIBAG 100 ML IV SCH ×2 (11:33→17:51)
[2021-10-06] MEDS ORDERED: BENZONATATE 100 MG CAPSULE PO PRN (12:07)
[2021-10-06] MEDS ORDERED: BENZONATATE 100 MG CAPSULE PO ONE (13:00)
--- NOTE | 2021-10-06 14:12 | PROVIDER PROGRESS NOTE ---
Assessment/Plan - Problem List (1) Aspiration pneumonia due to food (regurgitated) Assessment/Plan: pt had large aspiration with his food, cough, O2 sat drop to 90% on room air, tem is 37.8. CXR suggestive to pneumonia. order Unasyn, aspiration precaution and sitting up at the chair to have meal, supplement of O2 as needed. (2) Altered mental status 10/06 pt had OT Cognitive evaluation, he had 14/30 scale, concern dementia status. continue PT and OT evaluation and treatment, pt is living alone, consulted with social work for safely disposition planning 10/05 pt still present confusion, he report he is "on surgery". his creatinine is 1.2 today from 1 at the admission, CK remain the similar as the admission. pt did not have seizure at hospital as far. MRI of brain reveal No acute process. continue neuro check, continue OT/PT evaluation and treatment. consult with [employer] worker for d/c planning. (3) Syncope Conclusion/Plan: 10/06 pt has unwitnessed syncope, ECHO has normal EF, without aortic stenosis, unremarkable, troponin is slight elevated but flat, r/o acute CAD. he denies chest pain. he is negative for orthostatic hypotension. pt presented dehydration, confusion, mild rhabdomyolysis which are likely the caused to his syncope (4) Prerenal azotemia 10/06 slight reduced BUN and creatinine, continue gentle IVF, lab and vital monitor pt had no IVF at ER. now he has slight elevated creatinine, increase IVF to 125 cc/h, lab and vital monitor (5) Rhabdomyolysis 09/26 CK is down to 1700 from 2700, pt remain good kidney function, continue gentle IVF, and lab monitor mild rhabdomyolysis, CK remain similar today. pt had no IVF at ER, order IVF, check CK daily - Current Meds Current Meds: Current Medications Generic Name Dose Route Start Last Admin Trade Name Jhon PRN Reason Stop Dose Admin Aspirin 81 mg 10/06/21 09:00 10/06/21 08:13 Aspirin Ec 81 Mg Tablet PO 81 mg DAILY TRA Administration Ampicillin Sodium/Sulbactam 100 mls @ 200 mls/hr 10/06/21 12:00 10/06/21 12:05 Sodium 1.5 gm/ Sodium Chloride IV Infused Q6HR TRA Infusion Sodium Chloride 1,000 mls @ 83.333 mls/hr 10/06/21 10:00 10/06/21 09:50 Normal Saline 0.9% IV 10/07/21 09:59 83.333 mls/hr .Q12H TRA Administration Polyethylene Glycol 17 gm 10/06/21 09:00 10/06/21 08:15 Polyethylene Glycol 3350 17 Gm Packet PO 17 gm DAILY TRA Administration Sodium Chloride 10 ml 10/05/21 01:00 10/06/21 09:50 Sodium Chloride Flush 0.9% 10 Ml Syringe IVP 10 ml 0100,0900,1700 TRA Administration - Lab Result Fish Bone Diagrams: 10/06/21 05:45 10/06/21 05:45 - Additional Planning My Orders: My Active Orders 10/06/21 Blood Culture [CULTURE, BLOOD #1] [] Urgent Blood Culture [CULTURE, BLOOD #2] [] Urgent Evaluate and Treat OT [OT] Routine 10/06/21 10:00 Sodium Chloride 0.9% [Normal Saline 0.9%] 1,000 ml IV 83.333 mls/hr 10/06/21 10:31 Miscellaenous Nursing Order [RC] DAILY 10/06/21 Lunch Dysphagia Mechanically Altered Diet [DIET] 10/06/21 12:00 Ampicillin/Sulbactam [Unasyn] 1.5 gm Sodium Chloride 0.9% Minibag [Normal Saline 0.9% Minibag] 100 ml IV Q6HR 10/06/21 12:07 Benzonatate [Tessalon] 100 mg PO TID PRN 10/06/21 17:00 Saccharomyces Boulardii [Florastor] 250 mg PO BIDWM 10/07/21 05:00 BMP - BASIC METABOLIC PANEL [CHEM] DAILYLAB CBC - COMP BLD CT W/AUTO DIFF [HEME] DAILYLAB CK- CREATINE KINASE [CHEM] DAILYLAB 10/08/21 05:00 BMP - BASIC METABOLIC PANEL [CHEM] DAILYLAB CBC - COMP BLD CT W/AUTO DIFF [HEME] DAILYLAB CK- CREATINE KINASE [CHEM] DAILYLAB 10/09/21 05:00 BMP - BASIC METABOLIC PANEL [CHEM] DAILYLAB CBC - COMP BLD CT W/AUTO DIFF [HEME] DAILYLAB CK- CREATINE KINASE [CHEM] DAILYLAB 10/10/21 05:00 BMP - BASIC METABOLIC PANEL [CHEM] DAILYLAB CBC - COMP BLD CT W/AUTO DIFF [HEME] DAILYLAB CK- CREATINE KINASE [CHEM] DAILYLAB Subjective - Subjective Patient Reports: Cough Objective Vital Signs: Vital Signs - 24 hr 10/05/21 10/05/21 10/05/21 16:12 20:10 23:31 Temperature 36.6 C 37.0 C 37.7 C Heart Rate [ 76 83 79 Brachial] Respiratory 14 24 20 Rate Blood Pressure 128/74 122/62 129/72 [Right Brachial artery] O2 Saturation 95 94 95 10/06/21 10/06/21 10/06/21 03:45 07:46 09:03 Temperature 37.8 C 37.4 C Heart Rate [ 88 85 Brachial] Respiratory 20 21 19 Rate Blood Pressure 140/63 H 135/76 H [Right Brachial artery] O2 Saturation 93 90 L 93 Oxygen O2 Source Room air I&O (Last 24 Hrs): Intake and Output Totals x24h 10/04/21 10/05/21 10/06/21 23:59 23:59 23:59 Intake Total 3155.417 1800 Output Total 300 650 Balance -300 3155.417 1150 General: Alert, Cooperative, No acute distress HEENT: Atraumatic Neck: Supple Lymphatic: no adenopathy Neuro: Alert, Non Focal Cardiovascular: Regular rate, Normal S1, Normal S2 Respiratory: Chest non-tender, No respiratory distress Abdomen: Normal bowel sounds, Soft Extremities: Normal pulses - Results Results: Laboratory Results WBC 10.7 x10^3/uL (4.8-10.8) 10/06/21 05:45 RBC 4.21 10^6/uL (4.70-6.10) L 10/06/21 05:45 Hgb 13.7 g/dL (14.0-18.0) L 10/06/21 05:45 Hct 41.2 % (42.0-52.0) L 10/06/21 05:45 MCV 97.9 fL (80.0-94.0) H 10/06/21 05:45 MCH 32.5 pg (27.0-31.0) H 10/06/21 05:45 MCHC 33.3 g/dL (32.0-36.0) 10/06/21 05:45 RDW 12.8 % (12.0-15.0) 10/06/21 05:45 Plt Count 149 10^3/uL (130-450) 10/06/21 05:45 MPV 10.4 fL (7.4-11.4) 10/06/21 05:45 Neut # (Auto) 7.9 10^3/uL (1.5-6.6) H 10/06/21 05:45 Lymph # (Auto) 1.4 10^3/uL (1.5-3.5) L 10/06/21 05:45 [place] # (Auto) 1.2 10^3/uL (0.0-1.0) H 10/06/21 05:45 Eos # (Auto) 0.1 10^3/uL (0.0-0.7) 10/06/21 05:45 Baso # (Auto) 0.0 10^3/uL (0.0-0.1) 10/06/21 05:45 Absolute Nucleated RBC 0.00 x10^3/uL 10/06/21 05:45 Nucleated RBC % 0.0 /100WBC 10/06/21 05:45 Sodium 138 mmol/L (135-145) 10/06/21 05:45 Potassium 3.7 mmol/L (3.5-5.0) 10/06/21 05:45 Chloride 107 mmol/L (101-111) 10/06/21 05:45 Carbon Dioxide 22 mmol/L (21-32) 10/06/21 05:45 Anion Gap 9.0 (6-13) 10/06/21 05:45 BUN 29 mg/dL (6-20) H 10/06/21 05:45 Creatinine 1.1 mg/dL (0.6-1.2) 10/06/21 05:45 Estimated GFR (MDRD) 64 (>89) L 10/06/21 05:45 Glucose 112 mg/dL (70-100) H 10/06/21 05:45 Calcium 8.4 mg/dL (8.5-10.3) L 10/06/21 05:45 Total Bilirubin 1.2 mg/dL (0.2-1.0) H 10/04/21 17:56 AST 88 IU/L (10-42) H 10/04/21 17:56 ALT 34 IU/L (10-60) 10/04/21 17:56 Alkaline Phosphatase 79 IU/L (42-121) 10/04/21 17:56 Total Creatine Kinase 1772 IU/L (22-269) H* 10/06/21 05:45 Troponin I High Sens 51.3 ng/L (2.3-19.7) H* 10/04/21 19:43 Total Protein 7.1 g/dL (6.7-8.2) 10/04/21 17:56 Albumin 4.0 g/dL (3.2-5.5) 10/04/21 17:56 Globulin 3.1 g/dL (2.1-4.2) 10/04/21 17:56 Albumin/Globulin Ratio 1.3 (1.0-2.2) 10/04/21 17:56 Triglycerides 80 mg/dL (-149) 10/06/21 05:45 Cholesterol 161 mg/dL (-199) 10/06/21 05:45 LDL Cholesterol, Calc 94 mg/dL (-129) 10/06/21 05:45 VLDL Cholesterol 16 mg/dL 10/06/21 05:45 HDL Cholesterol 51 mg/dL (60-) L 10/06/21 05:45 LDL/HDL Ratio 1.8 (<3.6) 10/06/21 05:45 Cholesterol/HDL Ratio 3.2 (<5.0) 10/06/21 05:45 Lipase 22 U/L (22-51) 10/04/21 17:56 TSH 2.52 uIU/mL (0.34-5.60) 10/04/21 17:56 Urine Color YELLOW 10/04/21 19:39 Urine Clarity CLEAR (CLEAR) 10/04/21 19:39 Urine pH 5.5 PH (5.0-7.5) 10/04/21 19:39 Ur Specific [place] >=1.030 (1.002-1.030) H 10/04/21 19:39 Urine Protein TRACE mg/dL (NEGATIVE) 10/04/21 19:39 Urine Glucose (UA) NEGATIVE mg/dL (NEGATIVE) 10/04/21 19:39 Urine Ketones 40 mg/dL (NEGATIVE) H 10/04/21 19:39 Urine Occult Blood MODERATE (NEGATIVE) H 10/04/21 19:39 Urine Nitrite NEGATIVE (NEGATIVE) 10/04/21 19:39 Urine Bilirubin NEGATIVE (NEGATIVE) 10/04/21 19:39 Urine Urobilinogen 0.2 (NORMAL) E.U./dL (NORMAL) 10/04/21 19:39 Ur Leukocyte Esterase NEGATIVE (NEGATIVE) 10/04/21 19:39 Urine RBC 0-5 /HPF (0-5) 10/04/21 19:39 Urine WBC 0-3 /HPF (0-3) 10/04/21 19:39 Ur Squamous Epith Cells NONE SEEN (<= Few) 10/04/21 19:39 Amorphous Sediment Rare /LPF 10/04/21 19:39 Urine Bacteria None Seen /HPF (None Seen) 10/04/21 19:39 Ur Microscopic Review INDICATED 10/04/21 19:39 Urine Culture Comments NOT INDICATED 10/04/21 19:39 Nasal Adenovirus (PCR) NOT DETECTED 10/04/21 21:03 Nasal B. parapertussis DNA (PCR) NOT DETECTED 10/04/21 21:03 Nasal Coronavir 229E PCR NOT DETECTED 10/04/21 21:03 Nasal Coronavir HKU1 PCR NOT DETECTED 10/04/21 21:03 Nasal Coronavir NL63 PCR NOT DETECTED 10/04/21 21:03 Nasal Coronavir OC43 PCR NOT DETECTED 10/04/21 21:03 Nasal Enterovir/Rhinovir PCR NOT DETECTED 10/04/21 21:03 Nasal Influenza B PCR NOT DETECTED 10/04/21 21:03 Nasal Influenza A PCR NOT DETECTED 10/04/21 21:03 Nasal Parainfluen 1 PCR NOT DETECTED 10/04/21 21:03 Nasal Parainfluen 2 PCR NOT DETECTED 10/04/21 21:03 Nasal Parainfluen 3 PCR NOT DETECTED 10/04/21 21:03 Nasal Parainfluen 4 PCR NOT DETECTED 10/04/21 21:03 Nasal RSV (PCR) NOT DETECTED 10/04/21 21:03 Nasal B.pertussis DNA PCR NOT DETECTED 10/04/21 21:03 Nasal C.pneumoniae (PCR) NOT DETECTED 10/04/21 21:03 Deonte Human Metapneumo PCR NOT DETECTED 10/04/21 21:03 Nasal M.pneumoniae (PCR) NOT DETECTED 10/04/21 21:03 Nasal SARS-CoV-2 (PCR) NOT DETECTED 10/04/21 21:03 Salicylates < 6.0 mg/dL 10/04/21 17:56 Urine Opiates Screen NEGATIVE (NEGATIVE) 10/04/21 19:39 Ur Oxycodone Screen NEGATIVE (NEGATIVE) 10/04/21 19:39 Urine Methadone Screen NEGATIVE (NEGATIVE) 10/04/21 19:39 Ur Propoxyphene Screen NEGATIVE (NEGATIVE) 10/04/21 19:39 Acetaminophen < 10 ug/mL (10-30) L 10/04/21 17:56 Ur Barbiturates Screen NEGATIVE (NEGATIVE) 10/04/21 19:39 Ur Tricyclics Screen NEGATIVE (NEGATIVE) 10/04/21 19:39 Ur Phencyclidine Scrn NEGATIVE (NEGATIVE) 10/04/21 19:39 Ur Amphetamine Screen NEGATIVE (NEGATIVE) 10/04/21 19:39 U Methamphetamines Scrn NEGATIVE (NEGATIVE) 10/04/21 19:39 U Benzodiazepines Scrn NEGATIVE (NEGATIVE) 10/04/21 19:39 Urine Cocaine Screen NEGATIVE (NEGATIVE) 10/04/21 19:39 U Cannabinoids Screen NEGATIVE (NEGATIVE) 10/04/21 19:39 Ethyl Alcohol < 5.0 mg/dL 10/04/21 17:56 ABX Reporting Has patient been on IV antibiotics over the past 48 hours?: Yes Current Medications - Current Medications Current Medications: Active Medications Acetaminophen (Acetaminophen 325 Mg Tablet) 650 mg PO Q4HR PRN PRN Reason: Pain or Fever > 38C (100.4F) Aspirin (Aspirin Ec 81 Mg Tablet) 81 mg PO DAILY [facility] Last Admin: 10/06/21 08:13 Dose: 81 mg Documented by: Benzonatate (Benzonatate 100 Mg Capsule) 100 mg PO TID PRN PRN Reason: Cough Ampicillin Sodium/Sulbactam (Sodium 1.5 gm/ Sodium Chloride) 100 mls @ 200 mls/hr IV Q6HR [facility] Last Infusion: 10/06/21 12:05 Dose: Infused Documented by: Sodium Chloride (Normal Saline 0.9%) 1,000 mls @ 83.333 mls/hr IV .Q12H [facility] Stop: 10/07/21 09:59 Last Admin: 10/06/21 09:50 Dose: 83.333 mls/hr Documented by: Ondansetron HCl (Ondansetron 4 Mg/2 Ml Vial) 4 mg IVP Q6HR PRN PRN Reason: Nausea / Vomiting Polyethylene Glycol (Polyethylene Glycol 3350 17 Gm Packet) 17 gm PO DAILY [facility] Last Admin: 10/06/21 08:15 Dose: 17 gm Documented by: Saccharomyces Boulardii (Saccharomyces Boulardii 250 Mg Capsule) 250 mg PO BIDWM [facility] Sodium Chloride (Sodium Chloride Flush 0.9% 10 Ml Syringe) 10 ml IVP PRN PRN PRN Reason: NEEDED PER PROVIDER ORDERS Sodium Chloride (Sodium Chloride Flush 0.9% 10 Ml Syringe) 10 ml IVP 0100,0900,1700 [facility] Last Admin: 10/06/21 09:50 Dose: 10 ml Documented by:
--- NOTE | 2021-10-06 15:14 | PHARMACY PROGRESS NOTE ---
- Best Possible Medication History Admit Date and Time: 10/05/21 1030 Processed by: Pharmacy Medication History completed: Yes Patient Interview: Pt interview ONLY source As the person ultimately responsible for medication therapy, providers are able to order a medication from an existing home medication list in [facility] via the "Reconcile Routine" prior to Confirmation of that medication by computer systems support specialist. Such practice is discouraged except when the physician, in their clinical judgment, deems that a medical need exists for a medication without regard to previous use.
[2021-10-06] MEDS: SACCHAROMYCES BOULARDII 250 MG CAPSULE PO SCH (16:52)
[2021-10-07] MEDS: ACETAMINOPHEN 325 MG TABLET PO PRN (00:47)
[2021-10-07] MEDS: AMPICILLIN/SULBACTAM 1.5 GM in SODIUM CHLORIDE 0.9% MINIBAG 100 ML IV SCH ×4 (00:47→17:27)
[2021-10-07] MEDS: SODIUM CHLORIDE FLUSH 0.9% 10 ML SYRINGE IVP SCH ×3 (00:52→17:27)
[2021-10-07 07:07] LABS: BASOPHILS % (AUTO) 0.3 %; EOSINOPHILS # (AUTO) 0.2 10^3/uL (0.0-0.7); EOSINOPHILS % (AUTO) 2.1 %; HCT - HEMATOCRIT 40.3 % (42.0-52.0); LYMPHOCYTES # (AUTO) 1.6 10^3/uL (1.5-3.5); MEAN CORPUSCULAR HEMOGLOBIN 33.7 pg (27.0-31.0); MEAN CORPUSCULAR HGB CONC 34.7 g/dL (32.0-36.0); MEAN CORPUSCULAR VOLUME 96.9 fL (80.0-94.0); MEAN PLATELET VOLUME 10.5 fL (7.4-11.4); MONOCYTES # (AUTO) 1.2 10^3/uL (0.0-1.0); MONOCYTES % (AUTO) 13.3 %; NEUTROPHILS # (AUTO) 6.2 10^3/uL (1.5-6.6); PLT - PLATELET COUNT 132 10^3/uL (130-450); RED BLOOD COUNT 4.16 10^6/uL (4.70-6.10); RED CELL DISTRIBUTION WIDTH 12.3 % (12.0-15.0); WHITE BLOOD COUNT 9.3 x10^3/uL (4.8-10.8)
[2021-10-07 07:13] LABS: CALCIUM 8.1 mg/dL (8.5-10.3); POTASSIUM 3.7 mmol/L (3.5-5.0)
[2021-10-07] MEDS: SACCHAROMYCES BOULARDII 250 MG CAPSULE PO SCH ×2 (08:51→17:27)
[2021-10-07] MEDS: polyethylene glycoL 3350 17 GM PACKET PO SCH (08:51)
[2021-10-07] MEDS: ASPIRIN EC 81 MG TABLET PO SCH (08:51)
--- NOTE | 2021-10-07 08:58 | PROVIDER PROGRESS NOTE ---
Assessment/Plan - Problem List (1) Aspiration pneumonia due to food (regurgitated) Assessment/Plan: Patient aspirated his food on 10/06/2021. Oxygen saturation dropped to 90 percent on room air. Chest x-ray done at the time was suggestive of pneumonia. He had fever of 38.8 C this morning. Patient is on Unasyn. We will continue. Blood cultures pending. (2) Rhabdomyolysis Assessment/Plan: Creatinine kinase trend has been 2196 then 1772 then 740. Continue gentle IV hydration with normal saline at 83 mL/h. (3) Altered mental status Qualifiers: Altered mental status type: disorientation Qualified Code(s): R41.0 - Disorientation, unspecified Assessment/Plan: On patient's cognitive eval he scored 14/30. Concern for dementia. PT/OT to evaluate and treat. Social work to help facilitate discharge planning. (4) Syncope Qualifiers: Syncope type: unspecified Qualified Code(s): R55 - Syncope and collapse Assessment/Plan: 2D echocardiogram showed mild concentric left ventricular hypertrophy. Overall left ventricular systolic function was normal with an EF of 70 to 75 percent. No regional wall motion abnormality. - Current Meds Current Meds: Current Medications Generic Name Dose Route Start Last Admin Trade Name Freq PRN Reason Stop Dose Admin Acetaminophen 650 mg 10/04/21 20:52 10/07/21 00:47 Acetaminophen 325 Mg Tablet PO 650 mg Q4HR PRN Administration Pain or Fever > 38C (100.4F) Aspirin 81 mg 10/06/21 09:00 10/07/21 08:51 Aspirin Ec 81 Mg Tablet PO 81 mg DAILY TRA Administration Ampicillin Sodium/Sulbactam 100 mls @ 200 mls/hr 10/06/21 12:00 10/07/21 06:06 Sodium 1.5 gm/ Sodium Chloride IV Infused Q6HR TRA Infusion Sodium Chloride 1,000 mls @ 83.333 mls/hr 10/06/21 10:00 10/06/21 22:38 Normal Saline 0.9% IV 10/07/21 09:59 83.3 mls/hr .Q12H TRA Administration Polyethylene Glycol 17 gm 10/06/21 09:00 10/07/21 08:51 Polyethylene Glycol 3350 17 Gm Packet PO 17 gm DAILY TRA Administration Saccharomyces Boulardii 250 mg 10/06/21 17:00 10/07/21 08:51 Lorene Beal 250 Mg Capsule PO 250 mg BIDWM TRA Administration Sodium Chloride 10 ml 10/05/21 01:00 10/07/21 08:52 Sodium Chloride Flush 0.9% 10 Ml Syringe IVP Not Given 0100,0900,1700 TRA - Lab Result Fish Bone Diagrams: 10/07/21 06:49 10/07/21 06:49 Subjective - Subjective Patient Reports: Other (Patient was seated in bedside chair at time of exam. Reports feeling weak. Denies any other complaints.) Objective Vital Signs: Vital Signs - 24 hr 10/06/21 10/06/21 10/06/21 09:03 11:55 13:00 Temperature 37.2 C Heart Rate [ 86 Activity] Heart Rate [ 75 Brachial] Heart Rate [ Monitoring electrodes] Heart Rate [ 86 Sitting] Heart Rate [ 93 Standing] Heart Rate [ 84 Supine] Respiratory 19 20 Rate Blood Pressure 135/72 H [Activity] Blood Pressure [Right Brachial artery] Blood Pressure 144/81 H [Sitting] Blood Pressure 133/74 H [Standing] Blood Pressure 132/67 H [Supine] O2 Saturation 93 93 10/06/21 10/06/21 10/07/21 16:30 21:00 00:03 Temperature 37.6 C 37.1 C 38.6 C H Heart Rate [ Activity] Heart Rate [ 107 H 104 H Brachial] Heart Rate [ 88 Monitoring electrodes] Heart Rate [ Sitting] Heart Rate [ Standing] Heart Rate [ Supine] Respiratory 16 20 24 Rate Blood Pressure [Activity] Blood Pressure 147/88 H 149/86 H 148/71 H [Right Brachial artery] Blood Pressure [Sitting] Blood Pressure [Standing] Blood Pressure [Supine] O2 Saturation 93 91 L 91 L 10/07/21 10/07/21 00:49 04:40 Temperature 38.8 C H 36.8 C Heart Rate [ Activity] Heart Rate [ 87 Brachial] Heart Rate [ Monitoring electrodes] Heart Rate [ Sitting] Heart Rate [ Standing] Heart Rate [ Supine] Respiratory 24 20 Rate Blood Pressure [Activity] Blood Pressure 140/82 H [Right Brachial artery] Blood Pressure [Sitting] Blood Pressure [Standing] Blood Pressure [Supine] O2 Saturation 91 L 92 Oxygen O2 Source Room air I&O (Last 24 Hrs): Intake and Output Totals x24h 10/05/21 10/06/21 10/07/21 23:59 23:59 23:59 Intake Total 3155.417 3770.000 200 Output Total 851 Balance 3155.417 2919.000 200 General: Alert, Oriented x3, No acute distress HEENT: Atraumatic, PERRLA Neck: Supple, No JVD Neuro: Alert, Oriented Times 3 Cardiovascular: Regular rate, Normal S1, Normal S2 Respiratory: Chest non-tender, Other (Coarse breath sounds with mild wheeze) Abdomen: Normal bowel sounds, Soft, No tenderness, No masses Extremities: No clubbing, No cyanosis, No edema - Results Results: Laboratory Results WBC 9.3 x10^3/uL (4.8-10.8) 10/07/21 06:49 RBC 4.16 10^6/uL (4.70-6.10) L 10/07/21 06:49 Hgb 14.0 g/dL (14.0-18.0) 10/07/21 06:49 Hct 40.3 % (42.0-52.0) L 10/07/21 06:49 MCV 96.9 fL (80.0-94.0) H 10/07/21 06:49 MCH 33.7 pg (27.0-31.0) H 10/07/21 06:49 MCHC 34.7 g/dL (32.0-36.0) 10/07/21 06:49 RDW 12.3 % (12.0-15.0) 10/07/21 06:49 Plt Count 132 10^3/uL (130-450) 10/07/21 06:49 MPV 10.5 fL (7.4-11.4) 10/07/21 06:49 Neut # (Auto) 6.2 10^3/uL (1.5-6.6) 10/07/21 06:49 Lymph # (Auto) 1.6 10^3/uL (1.5-3.5) 10/07/21 06:49 [place] # (Auto) 1.2 10^3/uL (0.0-1.0) H 10/07/21 06:49 Eos # (Auto) 0.2 10^3/uL (0.0-0.7) 10/07/21 06:49 Baso # (Auto) 0.0 10^3/uL (0.0-0.1) 10/07/21 06:49 Absolute Nucleated RBC 0.00 x10^3/uL 10/07/21 06:49 Nucleated RBC % 0.0 /100WBC 10/07/21 06:49 Sodium 139 mmol/L (135-145) 10/07/21 06:49 Potassium 3.7 mmol/L (3.5-5.0) 10/07/21 06:49 Chloride 105 mmol/L (101-111) 10/07/21 06:49 Carbon Dioxide 24 mmol/L (21-32) 10/07/21 06:49 Anion Gap 10.0 (6-13) 10/07/21 06:49 BUN 21 mg/dL (6-20) H 10/07/21 06:49 Creatinine 1.0 mg/dL (0.6-1.2) 10/07/21 06:49 Estimated GFR (MDRD) 72 (>89) L 10/07/21 06:49 Glucose 108 mg/dL (70-100) H 10/07/21 06:49 Calcium 8.1 mg/dL (8.5-10.3) L 10/07/21 06:49 Total Bilirubin 1.2 mg/dL (0.2-1.0) H 10/04/21 17:56 AST 88 IU/L (10-42) H 10/04/21 17:56 ALT 34 IU/L (10-60) 10/04/21 17:56 Alkaline Phosphatase 79 IU/L (42-121) 10/04/21 17:56 Total Creatine Kinase 740 IU/L (22-269) H 10/07/21 06:49 Troponin I High Sens 51.3 ng/L (2.3-19.7) H* 10/04/21 19:43 Total Protein 7.1 g/dL (6.7-8.2) 10/04/21 17:56 Albumin 4.0 g/dL (3.2-5.5) 10/04/21 17:56 Globulin 3.1 g/dL (2.1-4.2) 10/04/21 17:56 Albumin/Globulin Ratio 1.3 (1.0-2.2) 10/04/21 17:56 Triglycerides 80 mg/dL (-149) 10/06/21 05:45 Cholesterol 161 mg/dL (-199) 10/06/21 05:45 LDL Cholesterol, Calc 94 mg/dL (-129) 10/06/21 05:45 VLDL Cholesterol 16 mg/dL 10/06/21 05:45 HDL Cholesterol 51 mg/dL (60-) L 10/06/21 05:45 LDL/HDL Ratio 1.8 (<3.6) 10/06/21 05:45 Cholesterol/HDL Ratio 3.2 (<5.0) 10/06/21 05:45 Lipase 22 U/L (22-51) 10/04/21 17:56 TSH 2.52 uIU/mL (0.34-5.60) 10/04/21 17:56 Urine Color YELLOW 10/04/21 19:39 Urine Clarity CLEAR (CLEAR) 10/04/21 19:39 Urine pH 5.5 PH (5.0-7.5) 10/04/21 19:39 Ur Specific [place] >=1.030 (1.002-1.030) H 10/04/21 19:39 Urine Protein TRACE mg/dL (NEGATIVE) 10/04/21 19:39 Urine Glucose (UA) NEGATIVE mg/dL (NEGATIVE) 10/04/21 19:39 Urine Ketones 40 mg/dL (NEGATIVE) H 10/04/21 19:39 Urine Occult Blood MODERATE (NEGATIVE) H 10/04/21 19:39 Urine Nitrite NEGATIVE (NEGATIVE) 10/04/21 19:39 Urine Bilirubin NEGATIVE (NEGATIVE) 10/04/21 19:39 Urine Urobilinogen 0.2 (NORMAL) E.U./dL (NORMAL) 10/04/21 19:39 Ur Leukocyte Esterase NEGATIVE (NEGATIVE) 10/04/21 19:39 Urine RBC 0-5 /HPF (0-5) 10/04/21 19:39 Urine WBC 0-3 /HPF (0-3) 10/04/21 19:39 Ur Squamous Epith Cells NONE SEEN (<= Few) 10/04/21 19:39 Amorphous Sediment Rare /LPF 10/04/21 19:39 Urine Bacteria None Seen /HPF (None Seen) 10/04/21 19:39 Ur Microscopic Review INDICATED 10/04/21 19:39 Urine Culture Comments NOT INDICATED 10/04/21 19:39 Nasal Adenovirus (PCR) NOT DETECTED 10/04/21 21:03 Nasal B. parapertussis DNA (PCR) NOT DETECTED 10/04/21 21:03 Nasal Coronavir 229E PCR NOT DETECTED 10/04/21 21:03 Nasal Coronavir HKU1 PCR NOT DETECTED 10/04/21 21:03 Nasal Coronavir NL63 PCR NOT DETECTED 10/04/21 21:03 Nasal Coronavir OC43 PCR NOT DETECTED 10/04/21 21:03 Nasal Enterovir/Rhinovir PCR NOT DETECTED 10/04/21 21:03 Nasal Influenza B PCR NOT DETECTED 10/04/21 21:03 Nasal Influenza A PCR NOT DETECTED 10/04/21 21:03 Nasal Parainfluen 1 PCR NOT DETECTED 10/04/21 21:03 Nasal Parainfluen 2 PCR NOT DETECTED 10/04/21 21:03 Nasal Parainfluen 3 PCR NOT DETECTED 10/04/21 21:03 Nasal Parainfluen 4 PCR NOT DETECTED 10/04/21 21:03 Nasal RSV (PCR) NOT DETECTED 10/04/21 21:03 Nasal B.pertussis DNA PCR NOT DETECTED 10/04/21 21:03 Nasal C.pneumoniae (PCR) NOT DETECTED 10/04/21 21:03 [place]onte Human Metapneumo PCR NOT DETECTED 10/04/21 21:03 Nasal M.pneumoniae (PCR) NOT DETECTED 10/04/21 21:03 Nasal SARS-CoV-2 (PCR) NOT DETECTED 10/04/21 21:03 Salicylates < 6.0 mg/dL 10/04/21 17:56 Urine Opiates Screen NEGATIVE (NEGATIVE) 10/04/21 19:39 Ur Oxycodone Screen NEGATIVE (NEGATIVE) 10/04/21 19:39 Urine Methadone Screen NEGATIVE (NEGATIVE) 10/04/21 19:39 Ur Propoxyphene Screen NEGATIVE (NEGATIVE) 10/04/21 19:39 Acetaminophen < 10 ug/mL (10-30) L 10/04/21 17:56 Ur Barbiturates Screen NEGATIVE (NEGATIVE) 10/04/21 19:39 Ur Tricyclics Screen NEGATIVE (NEGATIVE) 10/04/21 19:39 Ur Phencyclidine Scrn NEGATIVE (NEGATIVE) 10/04/21 19:39 Ur Amphetamine Screen NEGATIVE (NEGATIVE) 10/04/21 19:39 U Methamphetamines Scrn NEGATIVE (NEGATIVE) 10/04/21 19:39 U Benzodiazepines Scrn NEGATIVE (NEGATIVE) 10/04/21 19:39 Urine Cocaine Screen NEGATIVE (NEGATIVE) 10/04/21 19:39 U Cannabinoids Screen NEGATIVE (NEGATIVE) 10/04/21 19:39 Ethyl Alcohol < 5.0 mg/dL 10/04/21 17:56 ABX Reporting Has patient been on IV antibiotics over the past 48 hours?: Yes
[2021-10-07] MEDS: SODIUM CHLORIDE 0.9% 1,000 ML IV SCH (12:56)
[2021-10-07] MEDS: ZINC OXIDE 20% OINT 30 GM TUBE TOP PRN (14:53)
[2021-10-08] MEDS: SODIUM CHLORIDE FLUSH 0.9% 10 ML SYRINGE IVP SCH ×3 (00:07→17:15)
[2021-10-08] MEDS: AMPICILLIN/SULBACTAM 1.5 GM in SODIUM CHLORIDE 0.9% MINIBAG 100 ML IV SCH ×4 (00:07→17:38)
[2021-10-08] MEDS: ACETAMINOPHEN 325 MG TABLET PO PRN (00:36)
[2021-10-08] MEDS: SODIUM CHLORIDE 0.9% 1,000 ML IV SCH ×2 (00:37→13:59)
[2021-10-08 06:02] LABS: BASOPHILS % (AUTO) 0.4 %; EOSINOPHILS # (AUTO) 0.3 10^3/uL (0.0-0.7); EOSINOPHILS % (AUTO) 3.9 %; HCT - HEMATOCRIT 38.2 % (42.0-52.0); LYMPHOCYTES # (AUTO) 1.5 10^3/uL (1.5-3.5); LYMPHOCYTES % (AUTO) 18.6 %; MEAN PLATELET VOLUME 10.2 fL (7.4-11.4); MONOCYTES # (AUTO) 1.1 10^3/uL (0.0-1.0); NEUTROPHILS # (AUTO) 4.9 10^3/uL (1.5-6.6); NEUTROPHILS % (AUTO) 62.6 %; PLT - PLATELET COUNT 146 10^3/uL (130-450); RED BLOOD COUNT 3.94 10^6/uL (4.70-6.10); RED CELL DISTRIBUTION WIDTH 12.1 % (12.0-15.0); WHITE BLOOD COUNT 7.8 x10^3/uL (4.8-10.8)
[2021-10-08 06:17] LABS: CALCIUM 8.2 mg/dL (8.5-10.3); CREATININE 0.9 mg/dL (0.6-1.2); POTASSIUM 3.7 mmol/L (3.5-5.0)
--- NOTE | 2021-10-08 07:42 | PROVIDER PROGRESS NOTE ---
Assessment/Plan - Problem List (1) Aspiration pneumonia due to food (regurgitated) Assessment/Plan: 10/08/21 To be on room air. Oxygen saturation is 94% on room air. Patient is afebrile. WBC 7.8. Continue Zosy Very fatigued. Seen by PT. Recommending SNF upon discharge Social work to help facilitate process 10/07/21 Patient aspirated his food on 10/06/2021. Oxygen saturation dropped to 90% on room air. Chest x-ray done at the time was suggestive of pneumonia. He had fever of 38.8 C this morning. Patient is on Unasyn. We will continue. Blood cultures pending. (2) Rhabdomyolysis Assessment/Plan: Creatinine kinase trend has been 2196 then 1772 then 740 then 548. Continue gentle IV hydration with normal saline at 83 mL/h. (3) Altered mental status Qualifiers: Altered mental status type: disorientation Qualified Code(s): R41.0 - Disorientation, unspecified Assessment/Plan: On patient's cognitive eval he scored 14/30. Concern for dementia. PT/OT to evaluate and treat. Social work to help facilitate discharge planning. (4) Syncope Qualifiers: Syncope type: unspecified Qualified Code(s): R55 - Syncope and collapse Assessment/Plan: 2D echocardiogram showed mild concentric left ventricular hypertrophy. Overall left ventricular systolic function was normal with an EF of 70 to 75%. No regional wall motion abnormality. - Current Meds Current Meds: Current Medications Generic Name Dose Route Start Last Admin Trade Name Freq PRN Reason Stop Dose Admin Acetaminophen 650 mg 10/04/21 20:52 10/08/21 00:36 Acetaminophen 325 Mg Tablet PO 650 mg Q4HR PRN Administration Pain or Fever > 38C (100.4F) Aspirin 81 mg 10/06/21 09:00 10/07/21 08:51 Aspirin Ec 81 Mg Tablet PO 81 mg DAILY TRA Administration Ampicillin Sodium/Sulbactam 100 mls @ 200 mls/hr 10/06/21 12:00 10/08/21 06:50 Sodium 1.5 gm/ Sodium Chloride IV Infused Q6HR TRA Infusion Sodium Chloride 1,000 mls @ 83.333 mls/hr 10/07/21 11:00 10/08/21 00:37 Normal Saline 0.9% IV 83.333 mls/hr .Q12H TRA Administration Multi-Ingredient Ointment 1 applic 10/07/21 12:39 10/07/21 14:53 Zinc Oxide 20% Oint 30 Gm Tube TOP 1 applic PRN PRN Administration Skin Care Polyethylene Glycol 17 gm 10/06/21 09:00 10/07/21 08:51 Polyethylene Glycol 3350 17 Gm Packet PO 17 gm DAILY TRA Administration Saccharomyces Boulardii 250 mg 10/06/21 17:00 10/07/21 17:27 Saccharomyces Boulardii 250 Mg Capsule PO 250 mg BIDWM TRA Administration Sodium Chloride 10 ml 10/05/21 01:00 10/08/21 00:07 Sodium Chloride Flush 0.9% 10 Ml Syringe IVP 10 ml 0100,0900,1700 TRA Administration - Lab Result Fish Bone Diagrams: 10/08/21 05:46 10/08/21 05:46 - Additional Planning My Orders: My Active Orders 10/07/21 11:00 Sodium Chloride 0.9% [Normal Saline 0.9%] 1,000 ml IV 83.333 mls/hr Subjective - Subjective Patient Reports: Other (Patient is very somnolent today. Reports feeling very fatigued. O2Sat was 94% on r/a) Objective Vital Signs: Vital Signs - 24 hr 10/07/21 10/07/21 10/07/21 08:15 11:13 17:00 Temperature 36.6 C 36.8 C 37.1 C Heart Rate [ 82 76 80 Brachial] Heart Rate [ Monitoring electrodes] Respiratory 20 20 22 Rate Blood Pressure 147/85 H 128/68 132/72 H [Right Brachial artery] O2 Saturation 93 94 97 10/07/21 10/08/21 10/08/21 20:00 00:07 04:25 Temperature 37.1 C 37.6 C 36.7 C Heart Rate [ 86 73 Brachial] Heart Rate [ 88 Monitoring electrodes] Respiratory 21 17 20 Rate Blood Pressure 139/76 H 148/80 H 129/71 [Right Brachial artery] O2 Saturation 93 93 92 10/08/21 07:38 Temperature 36.6 C Heart Rate [ 76 Brachial] Heart Rate [ Monitoring electrodes] Respiratory 21 Rate Blood Pressure 149/80 H [Right Brachial artery] O2 Saturation 94 Oxygen O2 Source Room air I&O (Last 24 Hrs): Intake and Output Totals x24h 1110/07/21 10/08/21 23:59 23:59 23:59 Intake Total 3770.000 2970 1273.607 Output Total 851 Balance 2919.000 2970 1273.607 Comments/Notes: General: Alert, Oriented x3, No acute distress HEENT: Atraumatic, PERRLA Neck: Supple, No JVD Neuro: Alert, Oriented Times 3 Cardiovascular: Regular rate, Normal S1, Normal S2 Respiratory: Chest non-tender, Other (Coarse breath sounds with mild wheeze) Abdomen: Normal bowel sounds, Soft, No tenderness, No masses Extremities: No clubbing, No cyanosis, No edema - Results Results: Laboratory Results WBC 7.8 x10^3/uL (4.8-10.8) 10/08/21 05:46 RBC 3.94 10^6/uL (4.70-6.10) L 10/08/21 05:46 Hgb 13.0 g/dL (14.0-18.0) L 10/08/21 05:46 Hct 38.2 % (42.0-52.0) L 10/08/21 05:46 MCV 97.0 fL (80.0-94.0) H 10/08/21 05:46 MCH 33.0 pg (27.0-31.0) H 10/08/21 05:46 MCHC 34.0 g/dL (32.0-36.0) 10/08/21 05:46 RDW 12.1 % (12.0-15.0) 10/08/21 05:46 Plt Count 146 10^3/uL (130-450) 10/08/21 05:46 MPV 10.2 fL (7.4-11.4) 10/08/21 05:46 Neut # (Auto) 4.9 10^3/uL (1.5-6.6) 10/08/21 05:46 Lymph # (Auto) 1.5 10^3/uL (1.5-3.5) 10/08/21 05:46 [place] # (Auto) 1.1 10^3/uL (0.0-1.0) H 10/08/21 05:46 Eos # (Auto) 0.3 10^3/uL (0.0-0.7) 10/08/21 05:46 Baso # (Auto) 0.0 10^3/uL (0.0-0.1) 10/08/21 05:46 Absolute Nucleated RBC 0.00 x10^3/uL 10/08/21 05:46 Nucleated RBC % 0.0 /100WBC 10/08/21 05:46 Sodium 141 mmol/L (135-145) 10/08/21 05:46 Potassium 3.7 mmol/L (3.5-5.0) 10/08/21 05:46 Chloride 109 mmol/L (101-111) 10/08/21 05:46 Carbon Dioxide 24 mmol/L (21-32) 10/08/21 05:46 Anion Gap 8.0 (6-13) 10/08/21 05:46 BUN 20 mg/dL (6-20) 10/08/21 05:46 Creatinine 0.9 mg/dL (0.6-1.2) 10/08/21 05:46 Estimated GFR (MDRD) 81 (>89) L 10/08/21 05:46 Glucose 100 mg/dL (70-100) 10/08/21 05:46 Calcium 8.2 mg/dL (8.5-10.3) L 10/08/21 05:46 Total Bilirubin 1.2 mg/dL (0.2-1.0) H 10/04/21 17:56 AST 88 IU/L (10-42) H 10/04/21 17:56 ALT 34 IU/L (10-60) 10/04/21 17:56 Alkaline Phosphatase 79 IU/L (42-121) 10/04/21 17:56 Total Creatine Kinase 548 IU/L (22-269) H 10/08/21 05:46 Troponin I High Sens 51.3 ng/L (2.3-19.7) H* 10/04/21 19:43 Total Protein 7.1 g/dL (6.7-8.2) 10/04/21 17:56 Albumin 4.0 g/dL (3.2-5.5) 10/04/21 17:56 Globulin 3.1 g/dL (2.1-4.2) 10/04/21 17:56 Albumin/Globulin Ratio 1.3 (1.0-2.2) 10/04/21 17:56 Triglycerides 80 mg/dL (-149) 10/06/21 05:45 Cholesterol 161 mg/dL (-199) 10/06/21 05:45 LDL Cholesterol, Calc 94 mg/dL (-129) 10/06/21 05:45 VLDL Cholesterol 16 mg/dL 10/06/21 05:45 HDL Cholesterol 51 mg/dL (60-) L 10/06/21 05:45 LDL/HDL Ratio 1.8 (<3.6) 10/06/21 05:45 Cholesterol/HDL Ratio 3.2 (<5.0) 10/06/21 05:45 Lipase 22 U/L (22-51) 10/04/21 17:56 TSH 2.52 uIU/mL (0.34-5.60) 10/04/21 17:56 Urine Color YELLOW 10/04/21 19:39 Urine Clarity CLEAR (CLEAR) 10/04/21 19:39 Urine pH 5.5 PH (5.0-7.5) 10/04/21 19:39 Ur Specific [place] >=1.030 (1.002-1.030) H 10/04/21 19:39 Urine Protein TRACE mg/dL (NEGATIVE) 10/04/21 19:39 Urine Glucose (UA) NEGATIVE mg/dL (NEGATIVE) 10/04/21 19:39 Urine Ketones 40 mg/dL (NEGATIVE) H 10/04/21 19:39 Urine Occult Blood MODERATE (NEGATIVE) H 10/04/21 19:39 Urine Nitrite NEGATIVE (NEGATIVE) 10/04/21 19:39 Urine Bilirubin NEGATIVE (NEGATIVE) 10/04/21 19:39 Urine Urobilinogen 0.2 (NORMAL) E.U./dL (NORMAL) 10/04/21 19:39 Ur Leukocyte Esterase NEGATIVE (NEGATIVE) 10/04/21 19:39 Urine RBC 0-5 /HPF (0-5) 10/04/21 19:39 Urine WBC 0-3 /HPF (0-3) 10/04/21 19:39 Ur Squamous Epith Cells NONE SEEN (<= Few) 10/04/21 19:39 Amorphous Sediment Rare /LPF 10/04/21 19:39 Urine Bacteria None Seen /HPF (None Seen) 10/04/21 19:39 Ur Microscopic Review INDICATED 10/04/21 19:39 Urine Culture Comments NOT INDICATED 10/04/21 19:39 Nasal Adenovirus (PCR) NOT DETECTED 10/04/21 21:03 Nasal B. parapertussis DNA (PCR) NOT DETECTED 10/04/21 21:03 Nasal Coronavir 229E PCR NOT DETECTED 10/04/21 21:03 Nasal Coronavir HKU1 PCR NOT DETECTED 10/04/21 21:03 Nasal Coronavir NL63 PCR NOT DETECTED 10/04/21 21:03 Nasal Coronavir OC43 PCR NOT DETECTED 10/04/21 21:03 Nasal Enterovir/Rhinovir PCR NOT DETECTED 10/04/21 21:03 Nasal Influenza B PCR NOT DETECTED 10/04/21 21:03 Nasal Influenza A PCR NOT DETECTED 10/04/21 21:03 Nasal Parainfluen 1 PCR NOT DETECTED 10/04/21 21:03 Nasal Parainfluen 2 PCR NOT DETECTED 10/04/21 21:03 Nasal Parainfluen 3 PCR NOT DETECTED 10/04/21 21:03 Nasal Parainfluen 4 PCR NOT DETECTED 10/04/21 21:03 Nasal RSV (PCR) NOT DETECTED 10/04/21 21:03 Nasal B.pertussis DNA PCR NOT DETECTED 10/04/21 21:03 Nasal C.pneumoniae (PCR) NOT DETECTED 10/04/21 21:03 [place] Human Metapneumo PCR NOT DETECTED 10/04/21 21:03 Nasal M.pneumoniae (PCR) NOT DETECTED 10/04/21 21:03 Nasal SARS-CoV-2 (PCR) NOT DETECTED 10/04/21 21:03 Salicylates < 6.0 mg/dL 10/04/21 17:56 Urine Opiates Screen NEGATIVE (NEGATIVE) 10/04/21 19:39 Ur Oxycodone Screen NEGATIVE (NEGATIVE) 10/04/21 19:39 Urine Methadone Screen NEGATIVE (NEGATIVE) 10/04/21 19:39 Ur Propoxyphene Screen NEGATIVE (NEGATIVE) 10/04/21 19:39 Acetaminophen < 10 ug/mL (10-30) L 10/04/21 17:56 Ur Barbiturates Screen NEGATIVE (NEGATIVE) 10/04/21 19:39 Ur Tricyclics Screen NEGATIVE (NEGATIVE) 10/04/21 19:39 Ur Phencyclidine Scrn NEGATIVE (NEGATIVE) 10/04/21 19:39 Ur Amphetamine Screen NEGATIVE (NEGATIVE) 10/04/21 19:39 U Methamphetamines Scrn NEGATIVE (NEGATIVE) 10/04/21 19:39 U Benzodiazepines Scrn NEGATIVE (NEGATIVE) 10/04/21 19:39 Urine Cocaine Screen NEGATIVE (NEGATIVE) 10/04/21 19:39 U Cannabinoids Screen NEGATIVE (NEGATIVE) 10/04/21 19:39 Ethyl Alcohol < 5.0 mg/dL 10/04/21 17:56 ABX Reporting Has patient been on IV antibiotics over the past 48 hours?: Yes
[2021-10-08] MEDS: SACCHAROMYCES BOULARDII 250 MG CAPSULE PO SCH ×2 (07:55→17:15)
[2021-10-08] MEDS: ASPIRIN EC 81 MG TABLET PO SCH (08:33)
[2021-10-08] MEDS: polyethylene glycoL 3350 17 GM PACKET PO SCH (08:33)
[2021-10-09] MEDS: AMPICILLIN/SULBACTAM 1.5 GM in SODIUM CHLORIDE 0.9% MINIBAG 100 ML IV SCH ×3 (00:48→11:55)
[2021-10-09] MEDS: SODIUM CHLORIDE FLUSH 0.9% 10 ML SYRINGE IVP SCH ×3 (00:53→18:24)
[2021-10-09] MEDS: SODIUM CHLORIDE 0.9% 1,000 ML IV SCH ×2 (04:02→18:24)
[2021-10-09 06:10] LABS: BASOPHILS % (AUTO) 0.4 %; EOSINOPHILS # (AUTO) 0.3 10^3/uL (0.0-0.7); EOSINOPHILS % (AUTO) 3.3 %; HCT - HEMATOCRIT 40.2 % (42.0-52.0); HGB - HEMOGLOBIN 13.8 g/dL (14.0-18.0); LYMPHOCYTES % (AUTO) 12.9 %; MEAN CORPUSCULAR HEMOGLOBIN 32.9 pg (27.0-31.0); MEAN CORPUSCULAR HGB CONC 34.3 g/dL (32.0-36.0); MEAN CORPUSCULAR VOLUME 95.7 fL (80.0-94.0); MONOCYTES % (AUTO) 12.9 %; NEUTROPHILS # (AUTO) 5.5 10^3/uL (1.5-6.6); NEUTROPHILS % (AUTO) 69.9 %; PLT - PLATELET COUNT 166 10^3/uL (130-450); RED CELL DISTRIBUTION WIDTH 11.9 % (12.0-15.0); WHITE BLOOD COUNT 7.9 x10^3/uL (4.8-10.8)
[2021-10-09 06:25] LABS: CALCIUM 8.2 mg/dL (8.5-10.3); CREATININE 0.9 mg/dL (0.6-1.2); POTASSIUM 3.8 mmol/L (3.5-5.0)
--- NOTE | 2021-10-09 08:06 | PROVIDER PROGRESS NOTE ---
Assessment/Plan - Problem List (1) Aspiration pneumonia due to food (regurgitated) Assessment/Plan: 10/09/21 Unasyn discontinued today 10/09/2021. Augmentin twice daily initiated. 10/08/21 To be on room air. Oxygen saturation is 94% on room air. Patient is afebrile. WBC 7.8. Continue Unasym Very fatigued. Seen by PT. Recommending SNF upon discharge Social work to help facilitate process 10/07/21 Patient aspirated his food on 10/06/2021. Oxygen saturation dropped to 90% on room air. Chest x-ray done at the time was suggestive of pneumonia. He had fever of 38.8 C this morning. Patient is on Unasyn. We will continue. Blood cultures pending. (2) Rhabdomyolysis Assessment/Plan: Creatinine kinase trend has been 2196 then 1772 then 740 then 548 then 392. Continue gentle IV hydration with normal saline at 83 mL/h. (3) Altered mental status Qualifiers: Altered mental status type: disorientation Qualified Code(s): R41.0 - Disorientation, unspecified Assessment/Plan: On patient's cognitive eval he scored 14/30. Concern for dementia. PT/OT to evaluate and treat. Social work to help facilitate discharge planning. (4) Syncope Qualifiers: Syncope type: unspecified Qualified Code(s): R55 - Syncope and collapse Assessment/Plan: 2D echocardiogram showed mild concentric left ventricular hypertrophy. Overall left ventricular systolic function was normal with an EF of 70 to 75%. No regional wall motion abnormality. (3) Altered mental status Qualifiers: Altered mental status type: disorientation Qualified Code(s): R41.0 - Disorientation, unspecified (4) Syncope Qualifiers: Syncope type: unspecified Qualified Code(s): R55 - Syncope and collapse - Current Meds Current Meds: Current Medications Generic Name Dose Route Start Last Admin Trade Name Freq PRN Reason Stop Dose Admin Acetaminophen 650 mg 10/04/21 20:52 10/08/21 00:36 Acetaminophen 325 Mg Tablet PO 650 mg Q4HR PRN Administration Pain or Fever > 38C (100.4F) Aspirin 81 mg 10/06/21 09:00 10/08/21 08:33 Aspirin Ec 81 Mg Tablet PO 81 mg DAILY TRA Administration Ampicillin Sodium/Sulbactam 100 mls @ 200 mls/hr 10/06/21 12:00 10/09/21 06:26 Sodium 1.5 gm/ Sodium Chloride IV Infused Q6HR TRA Infusion Sodium Chloride 1,000 mls @ 83.333 mls/hr 10/07/21 11:00 10/09/21 04:02 Normal Saline 0.9% IV 83.333 mls/hr .Q12H TRA Administration Multi-Ingredient Ointment 1 applic 10/07/21 12:39 10/07/21 14:53 Zinc Oxide 20% Oint 30 Gm Tube TOP 1 applic PRN PRN Administration Skin Care Polyethylene Glycol 17 gm 10/06/21 09:00 10/08/21 08:33 Polyethylene Glycol 3350 17 Gm Packet PO 17 gm DAILY TRA Administration Saccharomyces Boulardii 250 mg 10/06/21 17:00 10/08/21 17:15 Saccharomyces Boulardii 250 Mg Capsule PO 250 mg BIDWM TRA Administration Sodium Chloride 10 ml 10/05/21 01:00 10/09/21 00:53 Sodium Chloride Flush 0.9% 10 Ml Syringe IVP 10 ml 0100,0900,1700 TRA Administration - Lab Result Fish Bone Diagrams: 10/09/21 05:57 10/09/21 05:57 Subjective - Subjective Patient Reports: Other (Regularly wake up to verbal stimuli but it still very somnolent and appears weak. His cough persists. Oxygen saturation fluctuates between 92 and 95% on room air.) Objective Vital Signs: Vital Signs - 24 hr 10/08/21 10/08/21 10/08/21 12:27 15:46 19:02 Temperature 36.7 C 36.7 C 36.6 C Heart Rate [ 79 74 77 Brachial] Heart Rate [ Monitoring electrodes] Respiratory 20 21 20 Rate Blood Pressure [Left] Blood Pressure 133/71 H 148/81 H 135/77 H [Right Brachial artery] O2 Saturation 94 95 98 10/08/21 10/09/21 10/09/21 23:45 05:49 07:25 Temperature 36.7 C 36.7 C 36.9 C Heart Rate [ 93 92 Brachial] Heart Rate [ 87 Monitoring electrodes] Respiratory 26 H 24 22 Rate Blood Pressure 159/86 H [Left] Blood Pressure 139/72 H 145/86 H [Right Brachial artery] O2 Saturation 95 93 92 Oxygen O2 Source Room air I&O (Last 24 Hrs): Intake and Output Totals x24h 10/07/21 10/08/21 10/09/21 23:59 23:59 23:59 Intake Total 2970 3585.607 1200 Output Total 200 Balance 2970 3385.607 1200 Comments/Notes: General: Alert, Oriented x3, No acute distress, Weak HEENT: Atraumatic, PERRLA Neck: Supple, No JVD Neuro: Alert, Oriented Times 3 Cardiovascular: Regular rate, Normal S1, Normal S2 Respiratory: Chest non-tender, Other (Coarse breath sounds with mild wheeze) Abdomen: Normal bowel sounds, Soft, No tenderness, No masses Extremities: No clubbing, No cyanosis, No edema - Results Results: Laboratory Results WBC 7.9 x10^3/uL (4.8-10.8) 10/09/21 05:57 RBC 4.20 10^6/uL (4.70-6.10) L 10/09/21 05:57 Hgb 13.8 g/dL (14.0-18.0) L 10/09/21 05:57 Hct 40.2 % (42.0-52.0) L 10/09/21 05:57 MCV 95.7 fL (80.0-94.0) H 10/09/21 05:57 MCH 32.9 pg (27.0-31.0) H 10/09/21 05:57 MCHC 34.3 g/dL (32.0-36.0) 10/09/21 05:57 RDW 11.9 % (12.0-15.0) L 10/09/21 05:57 Plt Count 166 10^3/uL (130-450) 10/09/21 05:57 MPV 10.0 fL (7.4-11.4) 10/09/21 05:57 Neut # (Auto) 5.5 10^3/uL (1.5-6.6) 10/09/21 05:57 Lymph # (Auto) 1.0 10^3/uL (1.5-3.5) L 10/09/21 05:57 [place] # (Auto) 1.0 10^3/uL (0.0-1.0) 10/09/21 05:57 Eos # (Auto) 0.3 10^3/uL (0.0-0.7) 10/09/21 05:57 Baso # (Auto) 0.0 10^3/uL (0.0-0.1) 10/09/21 05:57 Absolute Nucleated RBC 0.00 x10^3/uL 10/09/21 05:57 Nucleated RBC % 0.0 /100WBC 10/09/21 05:57 Sodium 139 mmol/L (135-145) 10/09/21 05:57 Potassium 3.8 mmol/L (3.5-5.0) 10/09/21 05:57 Chloride 106 mmol/L (101-111) 10/09/21 05:57 Carbon Dioxide 22 mmol/L (21-32) 10/09/21 05:57 Anion Gap 11.0 (6-13) 10/09/21 05:57 BUN 21 mg/dL (6-20) H 10/09/21 05:57 Creatinine 0.9 mg/dL (0.6-1.2) 10/09/21 05:57 Estimated GFR (MDRD) 81 (>89) L 10/09/21 05:57 Glucose 116 mg/dL (70-100) H 10/09/21 05:57 Calcium 8.2 mg/dL (8.5-10.3) L 10/09/21 05:57 Total Bilirubin 1.2 mg/dL (0.2-1.0) H 10/04/21 17:56 AST 88 IU/L (10-42) H 10/04/21 17:56 ALT 34 IU/L (10-60) 10/04/21 17:56 Alkaline Phosphatase 79 IU/L (42-121) 10/04/21 17:56 Total Creatine Kinase 392 IU/L (22-269) H 10/09/21 05:57 Troponin I High Sens 51.3 ng/L (2.3-19.7) H* 10/04/21 19:43 Total Protein 7.1 g/dL (6.7-8.2) 10/04/21 17:56 Albumin 4.0 g/dL (3.2-5.5) 10/04/21 17:56 Globulin 3.1 g/dL (2.1-4.2) 10/04/21 17:56 Albumin/Globulin Ratio 1.3 (1.0-2.2) 10/04/21 17:56 Triglycerides 80 mg/dL (-149) 10/06/21 05:45 Cholesterol 161 mg/dL (-199) 10/06/21 05:45 LDL Cholesterol, Calc 94 mg/dL (-129) 10/06/21 05:45 VLDL Cholesterol 16 mg/dL 10/06/21 05:45 HDL Cholesterol 51 mg/dL (60-) L 10/06/21 05:45 LDL/HDL Ratio 1.8 (<3.6) 10/06/21 05:45 Cholesterol/HDL Ratio 3.2 (<5.0) 10/06/21 05:45 Lipase 22 U/L (22-51) 10/04/21 17:56 TSH 2.52 uIU/mL (0.34-5.60) 10/04/21 17:56 Urine Color YELLOW 10/04/21 19:39 Urine Clarity CLEAR (CLEAR) 10/04/21 19:39 Urine pH 5.5 PH (5.0-7.5) 10/04/21 19:39 Ur Specific [place] >=1.030 (1.002-1.030) H 10/04/21 19:39 Urine Protein TRACE mg/dL (NEGATIVE) 10/04/21 19:39 Urine Glucose (UA) NEGATIVE mg/dL (NEGATIVE) 10/04/21 19:39 Urine Ketones 40 mg/dL (NEGATIVE) H 10/04/21 19:39 Urine Occult Blood MODERATE (NEGATIVE) H 10/04/21 19:39 Urine Nitrite NEGATIVE (NEGATIVE) 10/04/21 19:39 Urine Bilirubin NEGATIVE (NEGATIVE) 10/04/21 19:39 Urine Urobilinogen 0.2 (NORMAL) E.U./dL (NORMAL) 10/04/21 19:39 Ur Leukocyte Esterase NEGATIVE (NEGATIVE) 10/04/21 19:39 Urine RBC 0-5 /HPF (0-5) 10/04/21 19:39 Urine WBC 0-3 /HPF (0-3) 10/04/21 19:39 Ur Squamous Epith Cells NONE SEEN (<= Few) 10/04/21 19:39 Amorphous Sediment Rare /LPF 10/04/21 19:39 Urine Bacteria None Seen /HPF (None Seen) 10/04/21 19:39 Ur Microscopic Review INDICATED 10/04/21 19:39 Urine Culture Comments NOT INDICATED 10/04/21 19:39 Nasal Adenovirus (PCR) NOT DETECTED 10/04/21 21:03 Nasal B. parapertussis DNA (PCR) NOT DETECTED 10/04/21 21:03 Nasal Coronavir 229E PCR NOT DETECTED 10/04/21 21:03 Nasal Coronavir HKU1 PCR NOT DETECTED 10/04/21 21:03 Nasal Coronavir NL63 PCR NOT DETECTED 10/04/21 21:03 Nasal Coronavir OC43 PCR NOT DETECTED 10/04/21 21:03 Nasal Enterovir/Rhinovir PCR NOT DETECTED 10/04/21 21:03 Nasal Influenza B PCR NOT DETECTED 10/04/21 21:03 Nasal Influenza A PCR NOT DETECTED 10/04/21 21:03 Nasal Parainfluen 1 PCR NOT DETECTED 10/04/21 21:03 Nasal Parainfluen 2 PCR NOT DETECTED 10/04/21 21:03 Nasal Parainfluen 3 PCR NOT DETECTED 10/04/21 21:03 Nasal Parainfluen 4 PCR NOT DETECTED 10/04/21 21:03 Nasal RSV (PCR) NOT DETECTED 10/04/21 21:03 Nasal B.pertussis DNA PCR NOT DETECTED 10/04/21 21:03 Nasal C.pneumoniae (PCR) NOT DETECTED 10/04/21 21:03 Deonte Human Metapneumo PCR NOT DETECTED 10/04/21 21:03 Nasal M.pneumoniae (PCR) NOT DETECTED 10/04/21 21:03 Nasal SARS-CoV-2 (PCR) NOT DETECTED 10/04/21 21:03 Salicylates < 6.0 mg/dL 10/04/21 17:56 Urine Opiates Screen NEGATIVE (NEGATIVE) 10/04/21 19:39 Ur Oxycodone Screen NEGATIVE (NEGATIVE) 10/04/21 19:39 Urine Methadone Screen NEGATIVE (NEGATIVE) 10/04/21 19:39 Ur Propoxyphene Screen NEGATIVE (NEGATIVE) 10/04/21 19:39 Acetaminophen < 10 ug/mL (10-30) L 10/04/21 17:56 Ur Barbiturates Screen NEGATIVE (NEGATIVE) 10/04/21 19:39 Ur Tricyclics Screen NEGATIVE (NEGATIVE) 10/04/21 19:39 Ur Phencyclidine Scrn NEGATIVE (NEGATIVE) 10/04/21 19:39 Ur Amphetamine Screen NEGATIVE (NEGATIVE) 10/04/21 19:39 U Methamphetamines Scrn NEGATIVE (NEGATIVE) 10/04/21 19:39 U Benzodiazepines Scrn NEGATIVE (NEGATIVE) 10/04/21 19:39 Urine Cocaine Screen NEGATIVE (NEGATIVE) 10/04/21 19:39 U Cannabinoids Screen NEGATIVE (NEGATIVE) 10/04/21 19:39 Ethyl Alcohol < 5.0 mg/dL 10/04/21 17:56 ABX Reporting Has patient been on IV antibiotics over the past 48 hours?: No
[2021-10-09] MEDS: polyethylene glycoL 3350 17 GM PACKET PO SCH (09:50)
[2021-10-09] MEDS: ASPIRIN EC 81 MG TABLET PO SCH (09:50)
[2021-10-09] MEDS: SACCHAROMYCES BOULARDII 250 MG CAPSULE PO SCH ×2 (09:50→18:24)
[2021-10-09] MEDS ORDERED: guaiFENesin/DEXTROMETHORPHAN 10 ML UDC PO PRN (14:41)
[2021-10-09] MEDS: ZINC OXIDE 20% OINT 30 GM TUBE TOP PRN (20:30)
[2021-10-09] MEDS: AMOX/CLAV 875 MG/125 MG TABLET PO SCH (20:47)
[2021-10-10] MEDS: ZINC OXIDE 20% OINT 30 GM TUBE TOP PRN (00:05)
[2021-10-10] MEDS: SODIUM CHLORIDE FLUSH 0.9% 10 ML SYRINGE IVP SCH ×3 (00:06→18:11)
[2021-10-10 05:00] LABS: BASOPHILS # (AUTO) 0.1 10^3/uL (0.0-0.1); BASOPHILS % (AUTO) 0.7 %; EOSINOPHILS # (AUTO) 0.3 10^3/uL (0.0-0.7); EOSINOPHILS % (AUTO) 4.2 %; HCT - HEMATOCRIT 37.5 % (42.0-52.0); HGB - HEMOGLOBIN 12.7 g/dL (14.0-18.0); LYMPHOCYTES # (AUTO) 1.1 10^3/uL (1.5-3.5); LYMPHOCYTES % (AUTO) 14.4 %; MEAN CORPUSCULAR HEMOGLOBIN 32.5 pg (27.0-31.0); MEAN CORPUSCULAR HGB CONC 33.9 g/dL (32.0-36.0); MEAN CORPUSCULAR VOLUME 95.9 fL (80.0-94.0); MEAN PLATELET VOLUME 10.2 fL (7.4-11.4); MONOCYTES # (AUTO) 1.1 10^3/uL (0.0-1.0); MONOCYTES % (AUTO) 15.5 %; NEUTROPHILS # (AUTO) 4.7 10^3/uL (1.5-6.6); NEUTROPHILS % (AUTO) 64.4 %; PLT - PLATELET COUNT 176 10^3/uL (130-450); RED BLOOD COUNT 3.91 10^6/uL (4.70-6.10); RED CELL DISTRIBUTION WIDTH 11.9 % (12.0-15.0); WHITE BLOOD COUNT 7.3 x10^3/uL (4.8-10.8)
[2021-10-10 05:12] LABS: CALCIUM 8.2 mg/dL (8.5-10.3); CREATININE 0.9 mg/dL (0.6-1.2); POTASSIUM 3.7 mmol/L (3.5-5.0)
[2021-10-10] MEDS: SODIUM CHLORIDE 0.9% 1,000 ML IV SCH ×2 (05:34→16:59)
[2021-10-10] MEDS: SACCHAROMYCES BOULARDII 250 MG CAPSULE PO SCH ×2 (09:22→18:11)
[2021-10-10] MEDS: polyethylene glycoL 3350 17 GM PACKET PO SCH (09:22)
[2021-10-10] MEDS: AMOX/CLAV 875 MG/125 MG TABLET PO SCH ×2 (09:22→21:23)
[2021-10-10] MEDS: ASPIRIN CHEW 81 MG TABLET PO SCH (09:31)
--- NOTE | 2021-10-10 14:13 | PROVIDER PROGRESS NOTE ---
Assessment/Plan - Problem List (1) Aspiration pneumonia due to food (regurgitated) Assessment/Plan: significantly improved and stable, Patient has no active respiratory distress, he had a 94% oxygen saturation on room air. Antibiotics was switched to p.o. Augmentin Social work to help facilitate process (2) Rhabdomyolysis Assessment/Plan: creatinine is at normal arrange. Creatinine kinase trend has been 2196 then 1772 then 740 then 548 then 392 to 252 Continue gentle IV hydration with normal saline at 75 mL/h. (3) Altered mental status improved on today. but pt had cognitive eval he scored 14/30 by OT Concern for dementia. PT/OT to evaluate and treat. Social work to help facilitate discharge planning. (4) Syncope unwitnessed syncope. it is possible from dehydration. pt's 2D echocardiogram showed mild concentric left ventricular hypertrophy, Overall left ventricular systolic function was normal with an EF of 70 to 75%. No regional wall motion abnormality, or no aortic stenosis. EKG reveal SR without acute Ischemic change (5)weakness slight improved, Continue PT and OT evaluation and treatment, continue consult with social work for disposition planning - Current Meds Current Meds: Current Medications Generic Name Dose Route Start Last Admin Trade Name Freq PRN Reason Stop Dose Admin Acetaminophen 650 mg 10/04/21 20:52 10/08/21 00:36 Acetaminophen 325 Mg Tablet PO 650 mg Q4HR PRN Administration Pain or Fever > 38C (100.4F) Amoxicillin/Clavulanate Potassium 1 tab 10/09/21 21:00 10/10/21 09:22 Amox/Clav 875 Mg/125 Mg Tablet PO 10/14/21 09:01 1 tab BID TRA Administration Aspirin 81 mg 10/10/21 10:00 10/10/21 09:31 Aspirin Chew 81 Mg Tablet PO 81 mg DAILY TRA Administration Sodium Chloride 1,000 mls @ 83.333 mls/hr 10/07/21 11:00 10/10/21 05:34 Normal Saline 0.9% IV 83.333 mls/hr .Q12H TRA Administration Multi-Ingredient Ointment 1 applic 10/07/21 12:39 10/10/21 00:05 Zinc Oxide 20% Oint 30 Gm Tube TOP 1 applic PRN PRN Administration Skin Care Polyethylene Glycol 17 gm 10/06/21 09:00 10/10/21 09:22 Polyethylene Glycol 3350 17 Gm Packet PO 17 gm DAILY TRA Administration Saccharomyces [place] 250 mg 10/06/21 17:00 10/10/21 09:22 Saccharomyces Boulardii 250 Mg Capsule PO 250 mg BIDWM TRA Administration Sodium Chloride 10 ml 10/05/21 01:00 10/10/21 09:20 Sodium Chloride Flush 0.9% 10 Ml Syringe IVP Not Given 0100,0900,1700 TRA - Lab Result Fish Bone Diagrams: 10/10/21 04:44 10/10/21 04:44 - Additional Planning My Orders: My Active Orders 10/10/21 RESPIRATORY PCR PANEL Stat Subjective - Subjective Patient Reports: Resting Comfortably Objective Vital Signs: Vital Signs - 24 hr 10/09/21 10/09/21 10/10/21 16:05 20:19 00:20 Temperature 36.7 C 37.5 C 37.1 C Heart Rate [ 90 93 81 Brachial] Respiratory 18 18 18 Rate Blood Pressure 165/91 H 152/88 H 133/82 H [Right Brachial artery] O2 Saturation 93 97 97 10/10/21 10/10/21 10/10/21 05:20 07:15 12:24 Temperature 37.1 C 37.2 C 36.7 C Heart Rate [ 77 76 75 Brachial] Respiratory 18 20 17 Rate Blood Pressure 135/75 H 131/75 H 114/65 [Right Brachial artery] O2 Saturation 95 94 94 Oxygen O2 Source Room air I&O (Last 24 Hrs): Intake and Output Totals x24h 10/08/21 10/09/21 10/10/21 23:59 23:59 23:59 Intake Total 3585.607 4272 1490.552 Output Total 200 Balance 3385.607 4272 1490.552 General: Alert, Cooperative, No acute distress HEENT: Atraumatic, PERRLA Neck: Supple Lymphatic: no adenopathy Neuro: Alert, Non Focal Cardiovascular: Regular rate, Normal S1, Normal S2 Respiratory: Chest non-tender, No respiratory distress Abdomen: Normal bowel sounds, Soft, No tenderness Extremities: Normal pulses - Results Results: Laboratory Results WBC 7.3 x10^3/uL (4.8-10.8) 10/10/21 04:44 RBC 3.91 10^6/uL (4.70-6.10) L 10/10/21 04:44 Hgb 12.7 g/dL (14.0-18.0) L 10/10/21 04:44 Hct 37.5 % (42.0-52.0) L 10/10/21 04:44 MCV 95.9 fL (80.0-94.0) H 10/10/21 04:44 MCH 32.5 pg (27.0-31.0) H 10/10/21 04:44 MCHC 33.9 g/dL (32.0-36.0) 10/10/21 04:44 RDW 11.9 % (12.0-15.0) L 10/10/21 04:44 Plt Count 176 10^3/uL (130-450) 10/10/21 04:44 MPV 10.2 fL (7.4-11.4) 10/10/21 04:44 Neut # (Auto) 4.7 10^3/uL (1.5-6.6) 10/10/21 04:44 Lymph # (Auto) 1.1 10^3/uL (1.5-3.5) L 10/10/21 04:44 [place] # (Auto) 1.1 10^3/uL (0.0-1.0) H 10/10/21 04:44 Eos # (Auto) 0.3 10^3/uL (0.0-0.7) 10/10/21 04:44 Baso # (Auto) 0.1 10^3/uL (0.0-0.1) 10/10/21 04:44 Absolute Nucleated RBC 0.00 x10^3/uL 10/10/21 04:44 Nucleated RBC % 0.0 /100WBC 10/10/21 04:44 Sodium 137 mmol/L (135-145) 10/10/21 04:44 Potassium 3.7 mmol/L (3.5-5.0) 10/10/21 04:44 Chloride 105 mmol/L (101-111) 10/10/21 04:44 Carbon Dioxide 23 mmol/L (21-32) 10/10/21 04:44 Anion Gap 9.0 (6-13) 10/10/21 04:44 BUN 19 mg/dL (6-20) 10/10/21 04:44 Creatinine 0.9 mg/dL (0.6-1.2) 10/10/21 04:44 Estimated GFR (MDRD) 81 (>89) L 10/10/21 04:44 Glucose 108 mg/dL (70-100) H 10/10/21 04:44 Calcium 8.2 mg/dL (8.5-10.3) L 10/10/21 04:44 Total Bilirubin 1.2 mg/dL (0.2-1.0) H 10/04/21 17:56 AST 88 IU/L (10-42) H 10/04/21 17:56 ALT 34 IU/L (10-60) 10/04/21 17:56 Alkaline Phosphatase 79 IU/L (42-121) 10/04/21 17:56 Total Creatine Kinase 252 IU/L (22-269) 10/10/21 04:44 Troponin I High Sens 51.3 ng/L (2.3-19.7) H* 10/04/21 19:43 Total Protein 7.1 g/dL (6.7-8.2) 10/04/21 17:56 Albumin 4.0 g/dL (3.2-5.5) 10/04/21 17:56 Globulin 3.1 g/dL (2.1-4.2) 10/04/21 17:56 Albumin/Globulin Ratio 1.3 (1.0-2.2) 10/04/21 17:56 Triglycerides 80 mg/dL (-149) 10/06/21 05:45 Cholesterol 161 mg/dL (-199) 10/06/21 05:45 LDL Cholesterol, Calc 94 mg/dL (-129) 10/06/21 05:45 VLDL Cholesterol 16 mg/dL 10/06/21 05:45 HDL Cholesterol 51 mg/dL (60-) L 10/06/21 05:45 LDL/HDL Ratio 1.8 (<3.6) 10/06/21 05:45 Cholesterol/HDL Ratio 3.2 (<5.0) 10/06/21 05:45 Lipase 22 U/L (22-51) 10/04/21 17:56 TSH 2.52 uIU/mL (0.34-5.60) 10/04/21 17:56 Urine Color YELLOW 10/04/21 19:39 Urine Clarity CLEAR (CLEAR) 10/04/21 19:39 Urine pH 5.5 PH (5.0-7.5) 10/04/21 19:39 Ur Specific [place] >=1.030 (1.002-1.030) H 10/04/21 19:39 Urine Protein TRACE mg/dL (NEGATIVE) 10/04/21 19:39 Urine Glucose (UA) NEGATIVE mg/dL (NEGATIVE) 10/04/21 19:39 Urine Ketones 40 mg/dL (NEGATIVE) H 10/04/21 19:39 Urine Occult Blood MODERATE (NEGATIVE) H 10/04/21 19:39 Urine Nitrite NEGATIVE (NEGATIVE) 10/04/21 19:39 Urine Bilirubin NEGATIVE (NEGATIVE) 10/04/21 19:39 Urine Urobilinogen 0.2 (NORMAL) E.U./dL (NORMAL) 10/04/21 19:39 Ur Leukocyte Esterase NEGATIVE (NEGATIVE) 10/04/21 19:39 Urine RBC 0-5 /HPF (0-5) 10/04/21 19:39 Urine WBC 0-3 /HPF (0-3) 10/04/21 19:39 Ur Squamous Epith Cells NONE SEEN (<= Few) 10/04/21 19:39 Amorphous Sediment Rare /LPF 10/04/21 19:39 Urine Bacteria None Seen /HPF (None Seen) 10/04/21 19:39 Ur Microscopic Review INDICATED 10/04/21 19:39 Urine Culture Comments NOT INDICATED 10/04/21 19:39 Nasal Adenovirus (PCR) NOT DETECTED 10/04/21 21:03 Nasal B. parapertussis DNA (PCR) NOT DETECTED 10/04/21 21:03 Nasal Coronavir 229E PCR NOT DETECTED 10/04/21 21:03 Nasal Coronavir HKU1 PCR NOT DETECTED 10/04/21 21:03 Nasal Coronavir NL63 PCR NOT DETECTED 10/04/21 21:03 Nasal Coronavir OC43 PCR NOT DETECTED 10/04/21 21:03 Nasal Enterovir/Rhinovir PCR NOT DETECTED 10/04/21 21:03 Nasal Influenza B PCR NOT DETECTED 10/04/21 21:03 Nasal Influenza A PCR NOT DETECTED 10/04/21 21:03 Nasal Parainfluen 1 PCR NOT DETECTED 10/04/21 21:03 Nasal Parainfluen 2 PCR NOT DETECTED 10/04/21 21:03 Nasal Parainfluen 3 PCR NOT DETECTED 10/04/21 21:03 Nasal Parainfluen 4 PCR NOT DETECTED 10/04/21 21:03 Nasal RSV (PCR) NOT DETECTED 10/04/21 21:03 Nasal B.pertussis DNA PCR NOT DETECTED 10/04/21 21:03 Nasal C.pneumoniae (PCR) NOT DETECTED 10/04/21 21:03 [place] Human Metapneumo PCR NOT DETECTED 10/04/21 21:03 Nasal M.pneumoniae (PCR) NOT DETECTED 10/04/21 21:03 Nasal SARS-CoV-2 (PCR) NOT DETECTED 10/04/21 21:03 Salicylates < 6.0 mg/dL 10/04/21 17:56 Urine Opiates Screen NEGATIVE (NEGATIVE) 10/04/21 19:39 Ur Oxycodone Screen NEGATIVE (NEGATIVE) 10/04/21 19:39 Urine Methadone Screen NEGATIVE (NEGATIVE) 10/04/21 19:39 Ur Propoxyphene Screen NEGATIVE (NEGATIVE) 10/04/21 19:39 Acetaminophen < 10 ug/mL (10-30) L 10/04/21 17:56 Ur Barbiturates Screen NEGATIVE (NEGATIVE) 10/04/21 19:39 Ur Tricyclics Screen NEGATIVE (NEGATIVE) 10/04/21 19:39 Ur Phencyclidine Scrn NEGATIVE (NEGATIVE) 10/04/21 19:39 Ur Amphetamine Screen NEGATIVE (NEGATIVE) 10/04/21 19:39 U Methamphetamines Scrn NEGATIVE (NEGATIVE) 10/04/21 19:39 U Benzodiazepines Scrn NEGATIVE (NEGATIVE) 10/04/21 19:39 Urine Cocaine Screen NEGATIVE (NEGATIVE) 10/04/21 19:39 U Cannabinoids Screen NEGATIVE (NEGATIVE) 10/04/21 19:39 Ethyl Alcohol < 5.0 mg/dL 10/04/21 17:56 ABX Reporting Has patient been on IV antibiotics over the past 48 hours?: Yes Current Medications - Current Medications Current Medications: Active Medications Acetaminophen (Acetaminophen 325 Mg Tablet) 650 mg PO Q4HR PRN PRN Reason: Pain or Fever > 38C (100.4F) Last Admin: 10/08/21 00:36 Dose: 650 mg Documented by: Amoxicillin/Clavulanate Potassium (Amox/Clav 875 Mg/125 Mg Tablet) 1 tab PO BID TRA Stop: 10/14/21 09:01 Last Admin: 10/10/21 09:22 Dose: 1 tab Documented by: Aspirin (Aspirin Chew 81 Mg Tablet) 81 mg PO DAILY [facility] Last Admin: 10/10/21 09:31 Dose: 81 mg Documented by: Benzonatate (Benzonatate 100 Mg Capsule) 100 mg PO TID PRN PRN Reason: Cough Guaifenesin (Guaifenesin/Dextromethorphan 10 Ml Udc) 10 ml PO Q6HR PRN PRN Reason: Cough Sodium Chloride (Normal Saline 0.9%) 1,000 mls @ 75 mls/hr IV .[id number] [facility] Stop: 10/11/21 17:39 Multi-Ingredient Ointment (Zinc Oxide 20% Oint 30 Gm Tube) 1 applic TOP PRN PRN PRN Reason: Skin Care Last Admin: 10/10/21 00:05 Dose: 1 applic Documented by: Ondansetron HCl (Ondansetron 4 Mg/2 Ml Vial) 4 mg IVP Q6HR PRN PRN Reason: Nausea / Vomiting Polyethylene Glycol (Polyethylene Glycol 3350 17 Gm Packet) 17 gm PO DAILY [facility] Last Admin: 10/10/21 09:22 Dose: 17 gm Documented by: Saccharomyces Boulardii (Saccharomyces Boulardii 250 Mg Capsule) 250 mg PO BIDWM [facility] Last Admin: 10/10/21 09:22 Dose: 250 mg Documented by: Sodium Chloride (Sodium Chloride Flush 0.9% 10 Ml Syringe) 10 ml IVP PRN PRN PRN Reason: NEEDED PER PROVIDER ORDERS Sodium Chloride (Sodium Chloride Flush 0.9% 10 Ml Syringe) 10 ml IVP 010 0,0900,1700 [facility] Last Admin: 10/10/21 09:20 Dose: Not Given Documented by: No Known Home Medications 10/06/21
[2021-10-10 18:40] LABS: B. PARAPERTUSSIS- RESP PCR PAN NOT DETECTED; B. PERTUSSIS- RESP PCR PANEL NOT DETECTED; C. PNEUMONIAE- RESP PCR PANEL NOT DETECTED; CORONAVIRUS 229E-RESP PCR NOT DETECTED; CORONAVIRUS HKU1-RESP PCR NOT DETECTED; CORONAVIRUS NL63-RESP PCR NOT DETECTED; CORONAVIRUS OC43-RESP PCR NOT DETECTED; HUMAN METAPNEUMOVIRUS NOT DETECTED; INFLUENZA A- RESP PCR PANEL NOT DETECTED; INFLUENZA B - RESP PCR PANEL NOT DETECTED; M. PNEUMONIAE- RESP PCR PANEL NOT DETECTED; PARAINFLUENZA VIRUS 1 NOT DETECTED; PARAINFLUENZA VIRUS 2 NOT DETECTED; PARAINFLUENZA VIRUS 3 NOT DETECTED; PARAINFLUENZA VIRUS 4 NOT DETECTED; RHINOVIRUS/ENTEROVIRUS NOT DETECTED; RSV- RESP PCR PANEL NOT DETECTED; SARS-CoV-2 -RESP PCR PANEL NOT DETECTED
[2021-10-11] MEDS: SODIUM CHLORIDE FLUSH 0.9% 10 ML SYRINGE IVP SCH ×2 (03:03→09:06)
[2021-10-11] MEDS: SODIUM CHLORIDE 0.9% 1,000 ML IV SCH (05:40)
[2021-10-11 06:53] LABS: BASOPHILS % (AUTO) 0.5 %; EOSINOPHILS # (AUTO) 0.3 10^3/uL (0.0-0.7); EOSINOPHILS % (AUTO) 4.3 %; HCT - HEMATOCRIT 40.8 % (42.0-52.0); HGB - HEMOGLOBIN 13.8 g/dL (14.0-18.0); LYMPHOCYTES # (AUTO) 1.1 10^3/uL (1.5-3.5); LYMPHOCYTES % (AUTO) 14.3 %; MEAN CORPUSCULAR HEMOGLOBIN 32.3 pg (27.0-31.0); MEAN CORPUSCULAR HGB CONC 33.8 g/dL (32.0-36.0); MEAN CORPUSCULAR VOLUME 95.6 fL (80.0-94.0); MEAN PLATELET VOLUME 9.8 fL (7.4-11.4); MONOCYTES # (AUTO) 1.2 10^3/uL (0.0-1.0); MONOCYTES % (AUTO) 15.2 %; NEUTROPHILS % (AUTO) 64.7 %; PLT - PLATELET COUNT 196 10^3/uL (130-450); RED BLOOD COUNT 4.27 10^6/uL (4.70-6.10); RED CELL DISTRIBUTION WIDTH 11.8 % (12.0-15.0); WHITE BLOOD COUNT 7.7 x10^3/uL (4.8-10.8)
[2021-10-11 07:08] LABS: CALCIUM 8.4 mg/dL (8.5-10.3); CREATININE 0.9 mg/dL (0.6-1.2)
[2021-10-11] MEDS: polyethylene glycoL 3350 17 GM PACKET PO SCH (09:06)
[2021-10-11] MEDS: ASPIRIN CHEW 81 MG TABLET PO SCH (09:06)
[2021-10-11] MEDS: AMOX/CLAV 875 MG/125 MG TABLET PO SCH (09:06)
[2021-10-11] MEDS: SACCHAROMYCES BOULARDII 250 MG CAPSULE PO SCH (09:06)
--- NOTE | 2021-10-11 11:26 | Discharge Plan ---
"Discharge Plan for SNF / [facility] - Discharge Plan And Transition Orders Problem Reviewed?: Yes Disposition: 03 SNF DC/Xfer Condition: Stable Allergies and Adverse Reactions: Allergies Allergy/AdvReac Type Severity Reaction Status Date / Time No Known Drug Allergies Allergy Verified 10/04/21 21:23 Health Concerns: weakness, aspiration pneumonia, dehydration, early dementia Plan of Treatment: Patient may continue to have PT and OT in SNF, consideration of long-term care for patient as well. strongly Precaution of aspiration for pt, and keep pt hydration as well. Care Goals: Stabilization and improvement of pt's medical conditions, and plan to have long- term care for patient. Assessment: Discussed the care plan with the patient, he understood - SNF / [facility] Transition Orders Admit to ([facility]): [facility] Under the care of (Name): [facility] provide [facility] Discharge Diagnosis: Rhabdomyolysis, Dehydration, aspiration pneumonia, altered mental status, syncope, weakness, dementia Medicare Certification Statement: I certify that Post Hospital snf care is medically necessary on a continuing basis for any of the conditions for which she/he is receiving care during hospitalization. Notify PCP of admission and forward orders to primary provider for signature. Weight on admission and: Weekly Call PCP immediately if weight increases by: 2 kg Other Notification Orders: Call PCP immediately if patient develops dyspnea, chest pain/tightness or edema. House Bowel Program: Yes Additional Bowel Program Orders: If no BM after 2 days, nurse may give M.O.M. 30ml PO PRN and/or ducolax Supp 1 ID and/or SAMI 250mg P.O., and/or senna 1-2 tabs PO. On day 3 nurse may give repeat above order until residents constipation is resolved. Annual Influenza Vaccine (between Jul 19 and February 15): Yes Two-step PPD per [facility] [phone] or approved exception documents: Yes Treatments & Other Orders: Patient may continue to have PT and OT in SNF, consideration of long-term care for patient as well. strongly Precaution of aspiration for pt, and keep pt hydration as well. Medication Orders: PLEASE REFER TO THE DISCHARGE MEDICATION LIST. Insulin Orders?: No - Medications New Prescriptions: Amox/Clav 875/125 [Augmentin 875/125 Tab] 1 tab PO BID #6 tablet Saccharomyces Boulardii [Florastor] 250 mg PO BIDWM #6 cap - Diet Type: Geriatric Texture: Dysphagia mech Liquids: Thin May have monthly special meal: Yes - Therapies | Activity Therapy: Evaluation | Treat if indicated: PT, OT Rehabilitation Potential: Maximize functional status Activity: Activity as Tolerated"
--- NOTE | 2021-10-11 11:43 | DISCHARGE SUMMARY ---
Discharge Summary Admit Date: 10/04/21 Discharge Date: 10/11/21 Discharging Provider: Nilo Melendrez Primary Care Provider: Randy Wild Condition at Discharge: Stable Discharge Disposition: 03 SNF DC/Xfer Discharge [facility]: [facility] - DIAGNOSES Discharge Diagnoses with Status of Each Condition: (1) Aspiration pneumonia due to food (regurgitated) Significantly improved. Patient has no acute respiratory distress, patient had a stable oxygen saturation at 95% on room air. Patient is prescribed Augmentin to finish the treatment course. Patient needed aspiration precaution. (2) Rhabdomyolysis Resolved, CK is down to the normal range, patient had normal range creatinine (3) Altered mental status resolved and mental status is returned to pt's baseline (4) Syncope no syncope on hospital. pt had unwitnessed syncope in the admission. it is likely from his dehydration and rhabdomyolysis. pt's 2D echocardiogram showed mild concentric left ventricular hypertrophy, Overall left ventricular systolic function was normal with an EF of 70 to 75%. No regional wall motion abnormality, or no aortic stenosis. EKG reveal SR without acute Ischemic change, troponin was slight elevated and flat. pt denies chest pain. (5)weakness d/c to SNF (6)dehydration resolved. keep pt hydration (7)dementia pt had OT evaluation, Pt scored a 14/30 on the SLUMS Examination. Pt's score indicates early dementia. pt may need [facility] after d/c from SNF. - HPI History of Present Illness: refer from dr. Thu Virk's HPI on 10/04/21 This is an 81-year-old white male who lives alone, daughter lives in [place] (and arrived at his bedside in ED). 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 He has no significant past medical history, sees his doctor for routine visits, and takes no chronic prescription medications. Today his hair mixer's were working at his location and through his home's window, they saw him on the floor in his house and called 911. EMS arrived and found him to be warm and dry but confused and incontinent of urine. Vital signs at the scene showed O2 saturation of 96%, blood pressure of 180/100, serum glucose of 140, heart rate 90-110 but no EKG was done then. In the ED he was oriented only to person and time, not to place; he thought he was in [place]. His neuro exam was non-focal. He stated he remembered being on the floor but could not remember how he got there or how long he was down. The daughter arrived at bedside in the ED, and did report that he is becoming slowly more confused over the last few mos and she thinks he no longer drives. He underwent a head CT and neck imaging which showed no acute findings and no trauma. The patient is currently on Amoxicillin for dental infection and no abscess was seen on imaging. 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 His initial blood pressure here was 180 systolic and on repeat was as low as 115 systolic. Labs show prerenal azotemia and concentrated urine consistent with dehydration, his tox screen is entirely neg. The patient was presented to the Hospitalist team to place in Observation status to evaluate syncope versus seizure and also evaluate his persistent confusion (altered mental status). I discussed his CODE [place]TAN wishes with his daughter and she does not know, and he is too lethargic to answer me. - ALLERGIES Allergies/Adverse Reactions: Allergies Allergy/AdvReac Type Severity Reaction Status Date / Time No Known Drug Allergies Allergy Verified 10/04/21 21:23 - MEDICATIONS Home Medications: Ambulatory Orders Medication Instructions Recorded Confirmed Amox/Clav 875/125 [Augmentin 1 tab PO BID #6 tablet 10/11/21 875/125 Tab] Saccharomyces Boulardii [Florastor] 250 mg PO BIDWM #6 cap 10/11/21 - PHYSICAL EXAM AT DISCHARGE General Appearance: positive: No acute distress, Alert. negative: Lethargic Eyes Bilateral: positive: Normal inspection, No lid inflammation ENT: positive: ENT inspection nml, No signs of dehydration. negative: Purulent nasal drainage Neck: positive: Nml inspection, Trachea midline. negative: Tracheal deviation Respiratory: positive: Chest non-tender, No respiratory distress, Breath sounds nml. negative: Wheezes Cardiovascular: positive: Regular rate & rhythm. negative: Tachycardia, Bradycardia, Systolic murmur Peripheral Pulses: positive: 2+ Abdomen: positive: Non-tender, Nml bowel sounds, No distention. negative: Tenderness Back: positive: Nml inspection Skin: positive: Color nml, Warm, Dry. negative: Cyanosis Extremities: positive: Non-tender, Full ROM, Nml appearance. negative: No pedal edema Neurologic/Psychiatric: positive: Motor nml, Sensation nml, Mood/affect nml. negative: Weakness, Sensory loss, Facial droop, Slurred/abnml speech - LABS Result Diagrams: 10/11/21 06:39 10/11/21 06:39 - FOLLOW UP Follow Up: Patient may continue to have PT and OT in SNF, consideration of long-term care for patient. strongly Precaution of aspiration for pt, and keep pt hydration as well. - TIME SPENT Time Spent in Discharge (Minutes): 30
[2021-10-11 12:57] VITALS: BP 120/81
== END 2021-10-11 13:30 | DRG 947 ==
LOC: EDUNIT# → ED 17:30 → MS2 20:52 → OBSVTOIN 10-05 10:30
PROVIDERS: ADMIT Internal Medicine; ATTEND Nurse Practitioner Gerontology
DX: R41.0 Disorientation, unspecified (principal); J69.0 Pneumonitis due to inhalation of food and vomit; M62.82 Rhabdomyolysis; R55 Syncope and collapse; R94.31 Abnormal electrocardiogram [ECG] [EKG]; F03.90 Unspecified dementia, unspecified severity, without behavioral disturbance, psychotic disturbance, mood disturbance, and anxiety; Z20.822 Contact with and (suspected) exposure to COVID-19; E86.0 Dehydration; R79.89 Other specified abnormal findings of blood chemistry; R53.1 Weakness; K04.7 Periapical abscess without sinus; Z91.81 History of falling; Z87.891 Personal history of nicotine dependence
CPT/HCPCS: 36415; 70450; 70551; 71045; 72125; 80048; 80053; 80061; 80306; 80307; 81001; 82550; 83690; 84443; 84484; 85025; 87040; 87631; 93005; 93306; 96360; 96361; 97161; 97165; 97530; 99285; A9270; G0378; G0480; 0202U; 80320; 80329; 81003; 83721; 87086